=== PATIENT | female | born 1955 | race Caucasian/White ===

== ENCOUNTER 2016-07-13 10:34 | Emergency (ER) | payer SELFPAY ==
--- NOTE | 2016-07-13 10:51 | EDM.PDOC ---
ED HPI GENERAL MEDICAL PROBLEM - General Stated Complaint: congestion Time Seen by Provider: 07/13/16 10:40 History Limitations: Reports: No Limitations - History of Present Illness INITIAL COMMENTS - FREE TEXT/NARRATIVE: This is a 61yo F with cough and congestion for the past 2 weeks. Patient states it started with a severe sore throat and progressed to her sinuses and chest with coughing up a lot of sputum. Denies fever or chills, no sob, but persistent cough. Duration: Week(s): Location: Reports: Chest Quality: Reports: Ache Severity: Moderate Improves with: Reports: None Worsens with: Reports: None Associated Symptoms: Reports: Cough - Related Data Allergies Allergy/AdvReac Type Severity Reaction Status Date / Time clindamycin Allergy Unknown Hives Verified 11/02/15 13:43 Home Meds: Home Meds Lisinopril [Prinivil] 10 mg PO DAILY 09/02/13 [History] Simvastatin 40 mg PO DAILY 09/02/13 [History] RABEprazole Sodium [Rabeprazole Sodium] 1 tab PO DAILY 06/14/14 [History] SUMAtriptan Succinate [Sumatriptan Succinate] 50 mg PO ASDIRECTED PRN 06/14/14 [ History] Ibuprofen [Motrin] 800 mg PO TID PRN 11/02/15 [History] Venlafaxine HCl [Venlafaxine ER] 150 mg PO DAILY 11/02/15 [History] Past Medical History Cardiovascular History: Reports: High Cholesterol, Hypertension Gastrointestinal History: Reports: Other (See Below) Other Gastrointestinal History: 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 with bowel resection 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: Psychiatric History: Reports: Depression - Past Surgical History GI Surgical History: Reports: Appendectomy, Other (See Below) Female Surgical History: Reports: Section, Hysterectomy Neurological Surgical History: Reports: Lumbar Spine, Spinal Fusion Musculoskeletal Surgical History: Reports: Knee Replacement, Shoulder Surgery, Other (See Below) Social & Family History - Tobacco Use Smoking Status *Q: Current Every Day Smoker Years of Tobacco use: 30 Used Tobacco, but Quit: No Month Tobacco Last Used: August2012 Second Hand Smoke Exposure: No - Alcohol Use Days Per Week of Alcohol Use: 4 Number of Drinks Per Day: 5 Total Drinks Per Week: 20 - Recreational Drug Use Recreational Drug Use: No Drug Use in Last 12 Months: No ED ROS ENT - Review of Systems Review Of Systems: See Below Constitutional: Reports: No Symptoms HEENT: Reports: Throat Pain Respiratory: Reports: Cough, Sputum Cardiovascular: Reports: No Symptoms Endocrine: Reports: No Symptoms GI/Abdominal: Reports: No Symptoms : Reports: No Symptoms Psychiatric: Reports: No Symptoms ED EXAM, ENT - Physical Exam Exam: See Below Exam Limited By: No Limitations General Appearance: Alert, WD/WN, Mild Distress Eye Exam: Bilateral Eye: EOMI Ears: Normal External Exam Nose: Normal Inspection, Normal Mucousa, No Blood, Clear Rhinorrhea Mouth/Throat: Pharyngeal Erythema Head: Atraumatic, Normocephalic Neck: Normal Inspection, Supple, Non-Tender Respiratory/Chest: Decreased Breath Sounds, Rhonchi Cardiovascular: Normal Peripheral Pulses, Regular Rate, Rhythm GI/Abdominal: Normal Bowel Sounds, Soft Neurological: Alert, Oriented Psychiatric: Normal Affect, Normal Mood Skin: Warm, Dry, Intact Departure - Departure Time of Disposition: 10:52 Disposition: Home, Self-Care 01 Condition: good Clinical Impression: Chest congestion Pharyngitis Qualifiers: Pharyngitis/tonsillitis etiology: unspecified etiology Qualified Code(s): J02.9 - Acute pharyngitis, unspecified - Discharge Information - Assessment/Plan Plan: Patient placed on augmentin for 10 days. Discussed f/u if symptoms persist and immediate f/u if symptoms worsen. Discussed supportive and conservative care and f/u with PCP.
[2016-07-13] MEDS ORDERED: Amoxicillin/Clavulanate K 875-125 MG Tab ONE (10:55)
[2016-07-13 10:58] VITALS: BP 157/70
== END 2016-07-13 11:02 | disposition home or self-care (01) ==
LOC: LB.ED 10:34
DX: J02.9 Acute pharyngitis, unspecified (principal); R07.89 Other chest pain; E78.00 Pure hypercholesterolemia, unspecified; F32.9 Major depressive disorder, single episode, unspecified; F17.210 Nicotine dependence, cigarettes, uncomplicated; Z79.899 Other long term (current) drug therapy; Z88.8 Allergy status to other drugs, medicaments and biological substances
CPT/HCPCS: 99283; A9270

== ENCOUNTER 2016-09-10 20:09 | Emergency (ER) | payer OTHER ==
[2016-09-10] MEDS ORDERED: Ondansetron 4 MG Tab.DIS ONE (20:15)
[2016-09-10 20:44] VITALS: BP 147/88
[2016-09-10] MEDS ORDERED: Ketorolac 60 MG/2 ML SDV IM ONE (20:45)
--- NOTE | 2016-09-11 07:20 | EDM.PDOC ---
ED HPI GENERAL MEDICAL PROBLEM - General Chief Complaint: General Stated Complaint: HEADACHE Time Seen by Provider: 09/10/16 20:30 Source of Information: Reports: Patient History Limitations: Reports: No Limitations - History of Present Illness INITIAL COMMENTS - FREE TEXT/NARRATIVE: This is a 61yo F here for right headache. Patient states the headache is 8-9/10 and similar to the past headaches in the past week. Patient had hit her head when she fell about a week ago during work. She states she has had a history of migraines and headaches on and off all the time. This was more of the right head where she states she hit when she fell down last week. She does have a large bruise of the right hip from falling but no bruising or scrape of the right forehead. Patient denies any weakness, no numbness, no other neurological concerns. Onset: Gradual Duration: Week(s):, Intermittent Location: Reports: Head Quality: Reports: Ache Severity: Mild Improves with: Reports: Rest Worsens with: Reports: None Associated Symptoms: Reports: No Other Symptoms Headache Pain Score (Numeric/FACES): 8 - Related Data Allergies Allergy/AdvReac Type Severity Reaction Status Date / Time clindamycin Allergy Unknown Hives Verified 09/10/16 20:28 Home Meds: Home Meds Lisinopril [Prinivil] 10 mg PO DAILY 09/02/13 [History] Simvastatin 40 mg PO DAILY 09/02/13 [History] RABEprazole Sodium [Rabeprazole Sodium] 2 tab PO DAILY 06/14/14 [History] SUMAtriptan Succinate [Sumatriptan Succinate] 50 mg PO ASDIRECTED PRN 06/14/14 [ History] Ibuprofen [Motrin] 800 mg PO TID PRN 11/02/15 [History] Venlafaxine HCl [Venlafaxine ER] 150 mg PO DAILY 11/02/15 [History] Cyanocobalamin (Vitamin B-12) [Cyanocobalamin Injection] 1,000 mcg IJ ASDIRECTED 09/11/16 [History] Venlafaxine [Effexor XR] 37.5 mg PO DAILY 09/11/16 [History] buPROPion [Wellbutrin XL] 300 mg PO BEDTIME 09/11/16 [History] Past Medical History HEENT History: Reports: Impaired Vision Cardiovascular History: Reports: High Cholesterol, Hypertension Gastrointestinal History: Reports: Other (See Below) Other Gastrointestinal History: 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 with bowel resection 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: Psychiatric History: Reports: Depression - Past Surgical History HEENT Surgical History: Reports: Tonsillectomy GI Surgical History: Reports: Appendectomy, Other (See Below) Female Surgical History: Reports: Section, Hysterectomy Neurological Surgical History: Reports: Lumbar Spine, Spinal Fusion Musculoskeletal Surgical History: Reports: Knee Replacement, Shoulder Surgery Social & Family History - Family History Family Medical History: Noncontributory - Tobacco Use Smoking Status *Q: Current Every Day Smoker Years of Tobacco use: 40 Packs/Tins Daily: 1 Used Tobacco, but Quit: No Month Tobacco Last Used: August2012 Second Hand Smoke Exposure: No - Caffeine Use Caffeine Use: Reports: Coffee, Energy Drinks, Soda - Alcohol Use Days Per Week of Alcohol Use: 4 Number of Drinks Per Day: 5 Total Drinks Per Week: 20 - Recreational Drug Use Recreational Drug Use: No Drug Use in Last 12 Months: No ED ROS GENERAL - Review of Systems Review Of Systems: ROS reveals no pertinent complaints other than HPI. - Physical Exam Exam: See Below Exam Limited By: No Limitations General Appearance: Alert, WD/WN, No Apparent Distress Eye Exam: Bilateral Eye: EOMI, PERRL Ears: Normal External Exam Nose: Normal Inspection Throat/Mouth: Normal Inspection Head Exam: Atraumatic, Normocephalic Neck: Normal Inspection Respiratory/Chest: No Respiratory Distress, Lungs Clear Cardiovascular: Normal Peripheral Pulses, Regular Rate, Rhythm Extremities: Normal Inspection, Normal Range of Motion Psychiatric: Normal Affect, Normal Mood Skin Exam: Warm, Dry, Intact Course - Vital Signs Last Recorded V/S: Last Vital Signs Temp 35.9 C 09/10/16 20:42 Pulse 87 09/10/16 20:42 Resp 16 09/10/16 20:42 BP 147/88 H 09/10/16 20:42 Pulse Ox 98 09/10/16 20:42 - Orders/Labs/Meds Meds: Medications Discontinued Medications Generic Name Dose Route Start Last Admin Trade Name Freq PRN Reason Stop Dose Admin Ketorolac Tromethamine 60 mg 09/10/16 20:45 09/10/16 20:50 Toradol IM 09/10/16 20:46 60 mg ONETIME ONE Administration Departure - Departure Time of Disposition: 20:55 Disposition: Home, Self-Care 01 Condition: Good Clinical Impression: Headache Qualifiers: Headache type: unspecified Headache chronicity pattern: episodic headache Intractability: not intractable Qualified Code(s): R51 - Headache - Discharge Information Instructions: Concussion, Adult, [id number], Ondansetron oral dissolving tablet Referrals: PCP,None [Primary Care Provider] - Forms: ED Department Discharge Additional Instructions: Should headaches increase in severity, return to be seen. Continue to monitor for dizziness, blurred vision, lightheadedness, weakness. Should any of these symptoms occur, return to be seen for further evaluation. Follow up in clinic as needed. Call with any questions. - Problem List Review Problem List Initiated/Reviewed/Updated: Yes - Assessment/Plan Plan: Follow up if symptoms persist worsen or change. Patient understands the need for f/u. Discussed possible concussion and f/u.
== END 2016-09-10 20:53 | disposition home or self-care (01) ==
LOC: LB.ED 20:09
DX: R51 Headache (principal); H54.7 Unspecified visual loss; I10 Essential (primary) hypertension; E78.00 Pure hypercholesterolemia, unspecified; F32.9 Major depressive disorder, single episode, unspecified; Z98.890 Other specified postprocedural states; F17.210 Nicotine dependence, cigarettes, uncomplicated; Z88.1 Allergy status to other antibiotic agents; Z79.899 Other long term (current) drug therapy; Z96.659 Presence of unspecified artificial knee joint
CPT/HCPCS: 96372; 99283; A9270; J1885

== ENCOUNTER 2017-02-04 10:55 | Emergency (ER) | payer SELFPAY ==
[2017-02-04] MEDS ORDERED: Acetaminophen/HYDROcodone 325-5 MG Tab ONE ×2 (15:15)
--- NOTE | 2017-02-05 10:33 | CT ---
DATE OF SERVICE: 02/04/17 CLINICAL DATA: RT FLANK PAIN UNENHANCED ABDOMEN AND PELVIC CT: Multislice acquisition through the abdomen and pelvis without IV or oral contrast was performed. No priors. There are minimal atelectatic changes in the dependent portion of both lower lungs. The lung bases are otherwise clear. The unenhanced liver appears normal. No focal hepatic lesions. The gallbladder appears normal. The spleen appears normal. The pancreas appears normal. The right and left adrenals appear normal. There is an 8 mm distal ureteral calculus on the left located in the distal left ureter at the ureterovesical junction. There is hydronephrosis and hydroureter proximal to it consistent with obstruction. The kidneys and collecting systems otherwise appear normal bilaterally. No nephrocalcinosis or nephrolithiasis. No hydronephrosis or hydroureter on the right. The bladder is partially fluid-filled and appears normal. The patient is status post hysterectomy. No evidence of appendicitis. There is gastric wall thickening within the fundus and body of the stomach. This is most likely related to nondistension. Gastritis should at least be considered. There are surgical changes involving the distal sigmoid colon. There is mild mural thickening involving the rectum. Direct visualization is recommended. There is minimal diverticulosis of the sigmoid colon. No evidence of diverticulitis. No free air. No free fluid. No dilated loops of bowel. No adenopathy. No aortic aneurysm. IMPRESSION: 1) 8 mm distal ureteral calculus on left at ureterovesical junction with obstruction. 2) Gastric wall thickening most likely related to nondistension. Gastritis should be considered. 3) Surgical change involving distal sigmoid colon. There is mural thickening involving the rectum. Direct visualization should be considered. 4) Other findings as discussed above. [id number] [facility]
--- NOTE | 2017-02-06 10:48 | EDM.PDOC ---
ED HPI GENERAL MEDICAL PROBLEM - General Chief Complaint: Genitourinary Problem Stated Complaint: ABDOMINAL PAIN Time Seen by Provider: 02/05/17 15:57 Source of Information: Reports: Patient, RN, Other (Time in was 1100, [employer] system down and unable to document in system, refer to paper record for this visit.) History Limitations: Reports: No Limitations - History of Present Illness INITIAL COMMENTS - FREE TEXT/NARRATIVE: Please scan in provider notes from paper record as [employer] system down this day. Left Flank Pain Score (Numeric/FACES): 4 - Related Data Allergies Allergy/AdvReac Type Severity Reaction Status Date / Time clindamycin Allergy Unknown Hives Verified 09/10/16 20:28 Home Meds: Home Meds Lisinopril [Prinivil] 10 mg PO DAILY 09/02/13 [History] Simvastatin 40 mg PO DAILY 09/02/13 [History] RABEprazole Sodium [Rabeprazole Sodium] 2 tab PO DAILY 06/14/14 [History] SUMAtriptan Succinate [Sumatriptan Succinate] 50 mg PO ASDIRECTED PRN 06/14/14 [ History] Ibuprofen [Motrin] 800 mg PO TID PRN 11/02/15 [History] Venlafaxine HCl [Venlafaxine ER] 150 mg PO DAILY 11/02/15 [History] Cyanocobalamin (Vitamin B-12) [Cyanocobalamin Injection] 1,000 mcg IJ ASDIRECTED 09/11/16 [History] Venlafaxine [Effexor XR] 37.5 mg PO DAILY 09/11/16 [History] buPROPion [Wellbutrin XL] 300 mg PO BEDTIME 09/11/16 [History] Past Medical History HEENT History: Reports: Impaired Vision Cardiovascular History: Reports: High Cholesterol, Hypertension Gastrointestinal History: Reports: Other (See Below) Other Gastrointestinal History: 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 with bowel resection 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: Psychiatric History: Reports: Depression - Past Surgical History HEENT Surgical History: Reports: Tonsillectomy GI Surgical History: Reports: Appendectomy, Other (See Below) Female Surgical History: Reports: Section, Hysterectomy Neurological Surgical History: Reports: Lumbar Spine, Spinal Fusion Musculoskeletal Surgical History: Reports: Knee Replacement, Shoulder Surgery Social & Family History - Family History Family Medical History: Noncontributory - Tobacco Use Smoking Status *Q: Current Every Day Smoker Years of Tobacco use: 40 Packs/Tins Daily: 1 Used Tobacco, but Quit: No Month Tobacco Last Used: August2012 Second Hand Smoke Exposure: No - Caffeine Use Caffeine Use: Reports: Coffee, Energy Drinks, Soda - Alcohol Use Days Per Week of Alcohol Use: 4 Number of Drinks Per Day: 5 Total Drinks Per Week: 20 - Recreational Drug Use Recreational Drug Use: No Drug Use in Last 12 Months: No ED ROS GENERAL - Review of Systems Review Of Systems: See Below (Refer to paper record of notes.) : Reports: Flank Pain, Hematuria ED EXAM, RENAL/ - Physical Exam Exam: See Below (Refer to paper record for exam) Exam Limited By: No Limitations General Appearance: Alert, WD/WN, Mild Distress, Moderate Distress Ears: Hearing Grossly Normal Nose: Normal Inspection Throat/Mouth: Normal Inspection, Normal Lips, Normal Teeth Head: Atraumatic Neck: Supple, Non-Tender Respiratory/Chest: No Respiratory Distress, Lungs Clear GI/Abdominal: Normal Bowel Sounds, Soft (Female) Exam: Other (Flank pain, lower right back pain and into right pelvis ) Back Exam: Normal Inspection Extremities: Normal Inspection Neurological: Alert, Oriented Psychiatric: Normal Affect, Normal Mood Skin Exam: Warm, Dry, Normal Color Course - Vital Signs Last Recorded V/S: Last Vital Signs Temp 98 F 02/04/17 17:00 Pulse Resp 16 02/04/17 17:00 BP Pulse Ox - Orders/Labs/Meds Labs: Laboratory Tests 02/04/17 02/04/17 02/04/17 Range/Units 11:25 11:25 11:25 WBC 8.4 (4.0-11.0) K/uL RBC 4.38 (3.80-5.80) M/uL Hgb 12.6 (11.5-16.5) g/dL Hct 37.7 (37.0-47.0) % MCV 86 (76-96) fL MCH 28.8 (27.0-32.0) pg MCHC 33.4 (31.0-35.0) g/dL RDW 13.6 (11.0-16.0) % Plt Count 215 (150-500) K/uL MPV 9.6 (6.0-10.0) fL Neut % (Auto) 71.5 H (45.0-70.0) % Lymph % (Auto) 20.8 (20.0-40.0) % Lewis % (Auto) 6.2 (3.0-10.0) % Eos % (Auto) 1.4 (1.0-5.0) % Baso % (Auto) 0.1 (0.0-0.5) % Neut # (Auto) 6.01 (2.00-7.50) K/uL Lymph # (Auto) 1.75 (1.50-4.00) K/uL Lewis # (Auto) 0.52 (0.20-0.80) K/uL Eos # (Auto) 0.12 (0.04-0.40) K/uL Baso # (Auto) 0.01 L (0.02-0.10) K/uL Sodium 143 (136-145) mmol/L Potassium 3.9 (3.5-5.1) mmol/L Chloride 106 (98-107) mmol/L Carbon Dioxide 28.4 (21.0-32.0) mmol/L Anion Gap 12.5 (5.0-15.0) mmol/L BUN 18 D (8-26) mg/dL Creatinine 0.68 D (0.55-1.02) mg/dL Est Cr Clr Drug Dosing TNP Estimated GFR (MDRD) > 60 (>60) MLS/MIN BUN/Creatinine Ratio 26.5 H (6-25) Glucose 117 H (74-100) mg/dL Calcium 9.0 (8.5-10.1) mg/dL Urine Color Yellow Urine Appearance Clear (CLEAR) Urine pH 5.5 (5.0-8.0) Ur Specific [place] 1.025 (1.003-1.030) Urine Protein Negative (NEGATIVE) mg/dL Urine Glucose (UA) Negative (NEGATIVE) mg/dL Urine Ketones Negative (NEGATIVE) mg/dL Urine Occult Blood Negative (NEGATIVE) Urine Nitrite Negative (NEGATIVE) Urine Bilirubin Negative (NEGATIVE) Urine Urobilinogen 0.2 (0.2-1.0) E.U./dL Ur Leukocyte Esterase Negative (NEGATIVE) Urine RBC 0-5 H /HPF Urine WBC 0-5 H /HPF Departure - Departure Time of Disposition: 17:00 Disposition: Home, Self-Care 01 Condition: Good Clinical Impression: Kidney stone - Discharge Information Referrals: PCP,None [Primary Care Provider] - Forms: ED Department Discharge Care Plan Goals: No fluids after midnight. Can have sip of water with pain medication. No food tonight. Report to [facility] in am. Report to X-Ray at the clinic. Strain urine Can take [place] 1 to two every 4 to 6 hours for pain. No driving while taking pain medication - Problem List & Annotations (1) Kidney stone SNOMED Code(s): 45945055 Code(s): N20.0 - CALCULUS OF KIDNEY Status: Acute Current Visit: Yes - Problem List Review Problem List Initiated/Reviewed/Updated: Yes - Assessment/Plan Plan: Discharge to home. Consult with nephrology at [facility] and with Dr Zarate nurse. CT report pushed to [facility]. Rx for hydrocodone/APAP. May have food/fluids tonight and nothing after midnight. Present to [facility] tomorrow for KUB and then to Dr Zarate and treatment will be decided at that point. Urologist states to discharge to home with pain medication and present to Octavio in am. Discharge to family care for the night. Pt states understanding of treatment.
== END 2017-02-04 17:00 ==
LOC: LB.ED 10:55
DX: N13.2 Hydronephrosis with renal and ureteral calculous obstruction (principal); I10 Essential (primary) hypertension; E78.00 Pure hypercholesterolemia, unspecified; F17.210 Nicotine dependence, cigarettes, uncomplicated; F32.9 Major depressive disorder, single episode, unspecified; Z79.899 Other long term (current) drug therapy; Z88.1 Allergy status to other antibiotic agents
CPT/HCPCS: 36415; 74176; 80048; 81001; 85025; 99284; A9270

== ENCOUNTER 2017-08-27 19:43 | Emergency (ER) | payer SELFPAY ==
[2017-08-27] MEDS: Prochlorperazine 10 MG in Sodium Chloride 0.9% 50 ML IV ONE (20:02)
[2017-08-27] MEDS: Ketorolac 30 MG/ML SDV ONE (20:25)
[2017-08-27 21:59] VITALS: BP 142/79
--- NOTE | 2017-08-28 23:57 | ER ---
HPI: The patient is a 62-year-old female who comes in today with a migraine headache. She notes this is severe, it started yesterday. It is no different than her usual migraine headaches other than it is not a good one. She does have nausea, no vomiting, but she does have photophobia. The patient has a past medical history of diverticulitis, perforation of the intestine, hyperkalemia, epigastric pain, migraines, anxiety, and kidney stones. CURRENT MEDICATIONS: Bupropion, venlafaxine, simvastatin; sumatriptan, but she notes she is out, she takes 50 mg tablets as directed; rabeprazole sodium, lisinopril, ibuprofen, and cyanocobalamin. She did take some ibuprofen for this, but it did not help. She is out of the sumatriptan. ALLERGIES: HER ALLERGIES ARE CLINDAMYCIN. PHYSICAL EXAMINATION: GENERAL: She is alert, oriented, no apparent distress. HEENT: Unremarkable. Pupils are equal and reactive to light. Fundi appear normal. TMs normal. Nares are clear. Throat is normal. NECK: Supple. No nodes. LUNGS: Clear. HEART: Regular sinus rhythm. NEUROLOGIC: Nonfocal. ASSESSMENT: Migraine cephalgia. PLAN: The patient was given Compazine 10 mg IV over two minutes. This improved her nausea and brought her headache down to a lower level. She still had some residual headache, so she was given 30 mg of Toradol IV and this basically resolved her headache altogether. The patient was also given a prescription for some sumatriptan 50 mg, may repeat again x1 in an hour and 6 tablets with a couple of refills. The patient return to clinic if her headache fails to resolve afterwards or for worsening symptoms. ANOOP/PADDY /[id number]
== END 2017-08-27 20:50 | disposition home or self-care (01) ==
LOC: LB.ED 19:43
DX: G43.909 Migraine, unspecified, not intractable, without status migrainosus (principal); Z88.1 Allergy status to other antibiotic agents
CPT/HCPCS: 96365; 99283-25; J0780; J1885; J7050

== ENCOUNTER 2019-05-08 22:00 | Emergency (ER) | payer SELFPAY ==
[2019-05-08] MEDS: Bupivacaine 0.5% 10 ML SDV INJECT ONE (22:50)
[2019-05-08] MEDS: Triamcinolone Acetonide 40 MG/ML 1 ML MDV INJECT ONE (22:50)
[2019-05-08] MEDS ORDERED: Methocarbamol 500 MG Tab ONE (23:00)
[2019-05-08] MEDS: Promethazine 25 MG/ML SDV IM STA (23:00)
[2019-05-08] MEDS: Morphine 10 MG/ML Syringe IM STA (23:00)
--- NOTE | 2019-05-08 23:05 | EDM.PDOC ---
ED HPI GENERAL MEDICAL PROBLEM - General Chief Complaint: Back Pain or Injury Stated Complaint: back pain Time Seen by Provider: 05/08/19 22:30 - History of Present Illness INITIAL COMMENTS - FREE TEXT/NARRATIVE: Venessa presents to the ER tonight with a complex history of longstanding back pain. She is status post fusion with a cage from L4-5. This worked for her for many years. 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 This involved a lot of bending, lifting, and twisting. She denies any injury per se, but started to get a flareup of her lumbar discomfort a couple of weeks back. This prompted an evaluation where she was given a prescription for Flexeril along with Lidoderm patches. These helped for a few days. She has taken a lot of ibuprofen in the past. She has not really tried anything recently. She is mainly here to get some relief because she is rating her pain so severe that she does not think she will get adequate sleep tonight. She is currently laid off and that is very stressful. She has had no issues with decreased strength, sensory deficits, or urinary retention. She denies any recent injury, although she notes that she was manipulated with a high velocity move maneuver by her chiropractor, involving him essentially squeezing together her pelvis at the level of the trochanter of her hip. She does not have any tenderness there. She localizes it to her mid back, without radiation. She has had pain medicine in the past, and tolerates this well. She was hoping to get something to help her get through the night. She sometimes gets nauseated from this. - Related Data Allergies Allergy/AdvReac Type Severity Reaction Status Date / Time clindamycin Allergy Unknown Hives Verified 09/10/16 20:28 Home Meds: Home Meds Simvastatin 40 mg PO DAILY 09/02/13 [History] lisinopriL [Prinivil] 10 mg PO DAILY 09/02/13 [History] RABEprazole Sodium [Rabeprazole Sodium] 2 tab PO DAILY 06/14/14 [History] SUMAtriptan succinate [Sumatriptan Succinate] 50 mg PO ASDIRECTED PRN 06/14/14 [ History] Ibuprofen [Motrin] 800 mg PO TID PRN 11/02/15 [History] Venlafaxine HCl [Venlafaxine ER] 150 mg PO DAILY 11/02/15 [History] Cyanocobalamin (Vitamin B-12) [Cyanocobalamin Injection] 1,000 mcg IJ ASDIRECTED 09/11/16 [History] Venlafaxine [Effexor XR] 37.5 mg PO DAILY 09/11/16 [History] buPROPion [Wellbutrin XL] 300 mg PO BEDTIME 09/11/16 [History] Past Medical History HEENT History: Reports: Impaired Vision Cardiovascular History: Reports: High Cholesterol, Hypertension Gastrointestinal History: Reports: Other (See Below) Other Gastrointestinal History: 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 with bowel resection [employer] History: Reports: Psychiatric History: Reports: Depression - Past Surgical History HEENT Surgical History: Reports: Tonsillectomy GI Surgical History: Reports: Appendectomy, Other (See Below) Female Surgical History: Reports: Section, Hysterectomy Neurological Surgical History: Reports: Lumbar Spine, Spinal Fusion Musculoskeletal Surgical History: Reports: Knee Replacement, Shoulder Surgery Social & Family History - Family History Family Medical History: Noncontributory - Caffeine Use Caffeine Use: Reports: Coffee, Energy Drinks, Soda ED ROS GENERAL - Review of Systems Review Of Systems: Comprehensive ROS is negative, except as noted in HPI. ED EXAM, GENERAL - Physical Exam Exam: See Below General Appearance: Alert, WD/WN, No Apparent Distress Eye Exam: Bilateral Eye: EOMI Ears: Normal External Exam Nose: Normal Inspection Throat/Mouth: Normal Inspection, Normal Lips Head: Atraumatic, Normocephalic Neck: Normal Inspection, Supple, Non-Tender, Full Range of Motion Respiratory/Chest: No Respiratory Distress, Lungs Clear, Normal Breath Sounds Cardiovascular: Regular Rate, Rhythm, No Murmur GI/Abdominal: Normal Bowel Sounds, Soft, Non-Tender Back Exam: Normal Inspection, Full Range of Motion, Muscle Spasm, Paraspinal Tenderness, Other (Careful inspection of her back reveals a loss of lumbar lordosis. She has no tenderness to palpation overlying her spine. She is noted to have exquisite tenderness of her left SI joint that seems to reproduce her symptoms. After a lot of discussion, carefully explaining risk versus benefit, I did offer her an injection in the sacroiliac joint. Under usual sterile precautions, gave Kenalog 40 mg along with bupivacaine 9 mL's into her left sacroiliac joint with moderate difficulty, although she did tolerate this well. There was no significant bleeding, and repeat palpation resolved her focal tenderness, and significantly improved her pain.). No: Vertebral Tenderness Extremities: Normal Inspection, Normal Range of Motion, Normal Capillary Refill Neurological: Alert, Oriented, Normal Cognition, No Motor/Sensory Deficits Psychiatric: Normal Affect, Normal Mood Skin Exam: Warm, Dry, Intact Course - Vital Signs Text/Narrative:: Explained that at this juncture it certainly appears that she has a sacroiliitis related to her manipulation or potentially representing the injury that started up a couple of weeks ago. She certainly does not appear to be having any radicular symptoms. We explained that x-ray would probably not be helpful. She promises to follow-up with any persistent or worsening issues, and was given a take-home pack for Robaxin. She will continue to use her Lidoderm as needed. Return instructions were reviewed with my RN. She did receive an injection of morphine and Phenergan to help ensure that she gets through the night with adequate rest. - Orders/Labs/Meds Meds: Medications Discontinued Medications Generic Name Dose Route Start Last Admin Trade Name Carisa PRN Reason Stop Dose Admin Promethazine HCl Confirm 05/08/19 22:51 Phenergan Administered 05/08/19 22:52 Dose 25 mg .ROUTE .STK-MED ONE Departure - Departure Time of Disposition: 23:00 Disposition: Home, Self-Care 01 Condition: Fair Clinical Impression: Sacroiliac joint pain - Discharge Information Referrals: PCP,None [Primary Care Provider] -
[2019-05-09 02:45] VITALS: BP 149/84; PULSE 114
[2019-05-09] MEDS: Promethazine 25 MG/ML SDV ONE (03:25)
== END 2019-05-08 23:20 | disposition home or self-care (01) ==
LOC: LB.ED 22:00
DX: M53.3 Sacrococcygeal disorders, not elsewhere classified (principal); I10 Essential (primary) hypertension; Z88.1 Allergy status to other antibiotic agents
CPT/HCPCS: 20552; 96372; 99283; 99283-25; A9270-GY; J2270; J2550; J3301; J3490

== ENCOUNTER 2019-05-22 13:17 | Emergency (ER) | payer SELFPAY ==
[2019-05-22] MEDS ORDERED: Albuterol 0.021% 0.63 MG/3 ML Neb Soln ONE ×2 (13:40→14:15)
[2019-05-22 14:02] VITALS: BP 145/83; PULSE 110
--- NOTE | 2019-05-22 14:16 | EDM.PDOC ---
ED HPI GENERAL MEDICAL PROBLEM - General Chief Complaint: General Stated Complaint: Difficulty Breathing Time Seen by Provider: 05/22/19 13:50 Source of Information: Reports: Patient History Limitations: Reports: No Limitations - History of Present Illness INITIAL COMMENTS - FREE TEXT/NARRATIVE: This patient presents to the ED for evaluation of cough. She states she has been ill the past week with the cough. The illness began with a sore throat and now she is having episodes of coughing that "comes and goes" and is sometimes so hard and prolonged that she feels a little dizzy. She has not had a fever with this illness. Her appetite is good and she has not had any vomiting or diarrhea. Her was recently hospitalized with pneumonia. Onset: Gradual Onset Date: 05/15/19 Duration: Waxing/Waning Location: Reports: Chest Quality: Reports: Other (sometimes feel tight) Severity: Mild Improves with: Reports: None Associated Symptoms: Reports: Cough, Shortness of Breath. 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 (see below) Other Treatments RIGHT OF WAY MAINTENANCE SUPERVISOR: Dayquil - Related Data Allergies Allergy/AdvReac Type Severity Reaction Status Date / Time clindamycin Allergy Unknown Hives Verified 09/10/16 20:28 Home Meds: Home Meds Simvastatin 40 mg PO DAILY 09/02/13 [History] lisinopriL [Prinivil] 10 mg PO DAILY 09/02/13 [History] RABEprazole Sodium [Rabeprazole Sodium] 2 tab PO DAILY 06/14/14 [History] SUMAtriptan succinate [Sumatriptan Succinate] 50 mg PO ASDIRECTED PRN 06/14/14 [ History] Ibuprofen [Motrin] 800 mg PO TID PRN 11/02/15 [History] Venlafaxine HCl [Venlafaxine ER] 150 mg PO DAILY 11/02/15 [History] Cyanocobalamin (Vitamin B-12) [Cyanocobalamin Injection] 1,000 mcg IJ ASDIRECTED 09/11/16 [History] Venlafaxine [Effexor XR] 37.5 mg PO DAILY 09/11/16 [History] buPROPion [Wellbutrin XL] 300 mg PO BEDTIME 09/11/16 [History] Past Medical History HEENT History: Reports: Impaired Vision Cardiovascular History: Reports: High Cholesterol, Hypertension Gastrointestinal History: Reports: Other (See Below) 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 Gastrointestinal History: 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 with bowel 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: Psychiatric History: Reports: Depression - Past Surgical History HEENT Surgical History: Reports: Tonsillectomy GI Surgical History: Reports: Appendectomy, Other (See Below) Female Surgical History: Reports: Section, Hysterectomy Neurological Surgical History: Reports: Lumbar Spine, Spinal Fusion Musculoskeletal Surgical History: Reports: Knee Replacement, Shoulder Surgery Social & Family History - Family History Family Medical History: Noncontributory - Caffeine Use Caffeine Use: Reports: Coffee, Energy Drinks, Soda ED ROS GENERAL - Review of Systems Review Of Systems: Comprehensive ROS is negative, except as noted in HPI. ED EXAM, GENERAL - Physical Exam Exam: See Below Exam Limited By: No Limitations General Appearance: Alert, WD/WN, No Apparent Distress Eye Exam: Bilateral Eye: PERRL Ears: Normal External Exam Nose: Normal Inspection Throat/Mouth: Normal Inspection Head: Atraumatic, Normocephalic Neck: Normal Inspection, Full Range of Motion Respiratory/Chest: No Respiratory Distress, Lungs Clear, Normal Breath Sounds, No Accessory Muscle Use, Chest Non-Tender Extremities: Normal Inspection Neurological: Alert, Oriented Psychiatric: Normal Affect Skin Exam: Warm, Dry, Intact Course - Vital Signs Last Recorded V/S: Last Vital Signs Temp 36.6 C 05/22/19 14:00 Pulse 110 H 05/22/19 14:00 Resp 18 05/22/19 14:00 BP 145/83 H 05/22/19 14:00 Pulse Ox 98 05/22/19 14:00 - Orders/Labs/Meds Orders: Active Orders 24 hr Category Date Time Status Chest 2V [CR] Stat Exams 05/22/19 13:41 Taken Meds: Medications Discontinued Medications Generic Name Dose Route Start Last Admin Trade Name Freq PRN Reason Stop Dose Admin Albuterol Confirm 05/22/19 14:15 Proventil Neb Soln Administered 05/22/19 14:16 Dose 3.78 mg .ROUTE .STK-MED ONE - Re-Assessments/Exams Free Text/Narrative Re-Assessment/Exam: 05/22/19 14:16 This patient presents with complaint of cough. The patient appears well and nontoxic. There is no evidence of any respiratory distress. The patient has normal oxygen saturations with normal work of breathing. A chest x-ray was obtained and found to be negative for evidence of a pneumonia or other acute abnormalities. At this time, I find no indication for antibiotics. I will start the patient on albuterol nebs (the patient states they have a nebulizer unit at home) and discussed symptomatic treatment including increased rest and fluids. I discussed the need to seek care immediately for any increased difficulty breathing, severe chest pain, high fever or any other new concerns. Primary clinic follow up in 1 week recommended. The patient left with complete understanding and agreement with this plan and at the time of discharge had no further complaints. Departure - Departure Time of Disposition: 14:15 Disposition: Home, Self-Care 01 Condition: Good Clinical Impression: Bronchitis - Discharge Information Referrals: PCP,None [Primary Care Provider] - Forms: ED Department Discharge Additional Instructions: Albuterol 2.5 mg in 3 ml as directed Sepsis Event Note - Focused Exam Vital Signs: Vital Signs Temp Pulse Resp BP Pulse Ox 05/22/19 14:00 36.6 C 110 H 18 145/83 H 98 Date Exam was Performed: 05/22/19 Time Exam was Performed: 14:10 - My Orders Last 24 Hours: My Active Orders 05/22/19 13:41 Chest 2V [CR] Stat - Assessment/Plan Last 24 Hours: My Active Orders 05/22/19 13:41 Chest 2V [CR] Stat
--- NOTE | 2019-05-23 12:19 | CR ---
DATE OF SERVICE: 05/22/2019 CLINICAL DATA: Cough PA AND LATERAL CHEST: Comparison is made to a prior exam dated 03/20/14. The heart size is normal. The lungs are clear. No pneumothorax. No pleural effusions. There is degenerative disc disease throughout the thoracic spine. There is a partial compression fracture of the mid thoracic vertebrae, age indeterminate. No evidence of acute intrathoracic disease. [id number] [facility]
== END 2019-05-22 14:12 | disposition home or self-care (01) ==
LOC: LB.ED 13:17
DX: J40 Bronchitis, not specified as acute or chronic (principal); I10 Essential (primary) hypertension; F32.9 Major depressive disorder, single episode, unspecified; E78.00 Pure hypercholesterolemia, unspecified; Z88.1 Allergy status to other antibiotic agents; Z79.899 Other long term (current) drug therapy
CPT/HCPCS: 71046; 99283; 99285-25

== ENCOUNTER 2019-09-19 20:04 | Emergency (ER) | payer MEDICAID, OTHER ==
[2019-09-19] MEDS: Diphtheria/Tetanus Toxoids,Adult (Td) 0.5 ML SDV IM ONE ×2 (20:20→21:31)
--- NOTE | 2019-09-19 20:28 | EDM.PDOC ---
ED HPI GENERAL MEDICAL PROBLEM - General Chief Complaint: Laceration Stated Complaint: LACERATION Time Seen by Provider: 09/19/19 20:21 Source of Information: Reports: Patient, RN, RN Notes Reviewed History Limitations: Reports: No Limitations - History of Present Illness INITIAL COMMENTS - FREE TEXT/NARRATIVE: Patient was at work. Sliced her right index finger with a serrated knife. She was able to wrap the injury and secure it with tape. She feels it is deep. She was given a ride to the hospital by one of her co-workers. Her tetanus is 9 years old. Onset: Today, Sudden Onset Date: 09/19/19 Onset Time: 20:00 Duration: Minutes: Location: Reports: Upper Extremity, Right Quality: Reports: Throbbing Severity: Mild Improves with: Reports: Immobilization Worsens with: Reports: Movement Associated Symptoms: Reports: No Other Symptoms Right Finger-Index Pain Score (Numeric/FACES): 2 - Related Data Allergies Allergy/AdvReac Type Severity Reaction Status Date / Time clindamycin Allergy Unknown Hives Verified 09/10/16 20:28 Home Meds: Home Meds Simvastatin 40 mg PO DAILY 09/02/13 [History] lisinopriL [Prinivil] 10 mg PO DAILY 09/02/13 [History] RABEprazole Sodium [Rabeprazole Sodium] 2 tab PO DAILY 06/14/14 [History] SUMAtriptan succinate [Sumatriptan Succinate] 50 mg PO ASDIRECTED PRN 06/14/14 [History] Ibuprofen [Motrin] 800 mg PO TID PRN 11/02/15 [History] Venlafaxine HCl [Venlafaxine ER] 150 mg PO DAILY 11/02/15 [History] Cyanocobalamin (Vitamin B-12) [Cyanocobalamin Injection] 1,000 mcg IJ ASDIRECTED 09/11/16 [History] Venlafaxine [Effexor XR] 37.5 mg PO DAILY 09/11/16 [History] buPROPion [Wellbutrin XL] 300 mg PO BEDTIME 09/11/16 [History] Past Medical History HEENT History: Reports: Impaired Vision Cardiovascular History: Reports: High Cholesterol, Hypertension Gastrointestinal History: Reports: Other (See Below) Other Gastrointestinal History: 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 with bowel resection [employer]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: Psychiatric History: Reports: Depression - Past Surgical History HEENT Surgical History: Reports: Tonsillectomy GI Surgical History: Reports: Appendectomy, Other (See Below) Female Surgical History: Reports: Section, Hysterectomy Neurological Surgical History: Reports: Lumbar Spine, Spinal Fusion Musculoskeletal Surgical History: Reports: Knee Replacement, Shoulder Surgery Social & Family History - Family History Family Medical History: Noncontributory - Tobacco Use Smoking Status *Q: Current Every Day Smoker Years of Tobacco use: 30 Packs/Tins Daily: 0.5 Used Tobacco, but Quit: No - Caffeine Use Caffeine Use: Reports: Coffee - Recreational Drug Use Recreational Drug Use: No ED ROS GENERAL - Review of Systems Review Of Systems: See Below Constitutional: Reports: No Symptoms Respiratory: Reports: No Symptoms Cardiovascular: Reports: No Symptoms Skin: Reports: Wound (incision from serrated knife right index finger) Neurological: Reports: No Symptoms ED EXAM, SKIN/RASH Exam: See Below Exam Limited By: No Limitations General Appearance: Alert, WD/WN, No Apparent Distress Respiratory/Chest: No Respiratory Distress, Lungs Clear, Normal Breath Sounds, No Accessory Muscle Use, Chest Non-Tender Cardiovascular: Normal Peripheral Pulses, Regular Rate, Rhythm, No Murmur, No Rub Neurological: Alert, Oriented, CN II-XII Intact, Normal Cognition, Normal Gait, Normal Reflexes Skin: Warm, Dry, Wound/Incision (1.3 cm superficial lac right index finger) Location, Skin: Upper Extremity, Right ED SKIN PROCEDURES - Laceration/Wound Repair Right Digit - 2nd (Index) Appearance: Superficial, Clean Distal NVT: Neuro & Vascular Intact, No Tendon Injury Skin Prep: Saline Exploration/Debridement/Repair: Wound Explored, In a Bloodless Field, Explored to Base Closed with: Dermabond, Steri-Strips Lac/Wound length In cm: 1.3 Tetanus Status Addressed: Yes Complications: No Progress/Comments: Serrated edge of wound lays back in place without difficulty. It is cleaned and irrigated. No foreign objects found. The wound edges are secured with derma mratins and steri strips to pull and hold the wound together. Patient instructed in wound care, how to identify infection and provided a current Tdap. Course - Orders/Labs/Meds Orders: Active Orders 24 hr Category Date Time Status Vaccines to be Administered [RC] PER UNIT ROUTINE Care 09/19/19 20:22 Ordered Diphtheria/Tetanus Tox,Adult [Tenivac] Med 09/19/19 20:21 Once 0.5 ml IM .ONCE ONE Medication Orders Tetanus/Diphtheria Toxoids (Tenivac) 0.5 ml IM .ONCE ONE Stop: 09/19/19 20:22 Meds: Medications Generic Name Dose Route Start Last Admin Trade Name Carisa PRN Reason Stop Dose Admin Tetanus/Diphtheria Toxoids 0.5 ml 09/19/19 20:21 Tenivac IM 09/19/19 20:22 .ONCE ONE - Re-Assessments/Exams Free Text/Narrative Re-Assessment/Exam: 09/19/19 20:45 Patient has sensation at the tip of her finger with good CMS at the nail bed. Patient tolerated the cleaning and the dressing application without difficulty and after education is able to state how to keep it protected and what signs and symptoms to report if there is any infection noted. No antibiotics necessary. Departure - Departure Time of Disposition: 20:38 Disposition: Home, Self-Care 01 Condition: Good Clinical Impression: Laceration - Discharge Information *PRESCRIPTION DRUG MONITORING PROGRAM REVIEWED*: Not Applicable *COPY OF PRESCRIPTION DRUG MONITORING REPORT IN PATIENT LILIANA: Not Applicable Instructions: Laceration Care, Adult, [id number] Care Plan Goals: Return if any complications or signs of infection - My Orders Last 24 Hours: My Active Orders 09/19/19 20:21 Diphtheria/Tetanus Tox,Adult [Tenivac] 0.5 ml IM .ONCE ONE 09/19/19 20:22 Vaccines to be Administered [RC] PER UNIT ROUTINE - Assessment/Plan Last 24 Hours: My Active Orders 09/19/19 20:21 Diphtheria/Tetanus Tox,Adult [Tenivac] 0.5 ml IM .ONCE ONE 09/19/19 20:22 Vaccines to be Administered [RC] PER UNIT ROUTINE
[2019-09-19 20:52] VITALS: BP 158/75; PULSE 98
== END 2019-09-19 23:10 | disposition home or self-care (01) ==
LOC: LB.ED 20:04
DX: S61.210A Laceration without foreign body of right index finger without damage to nail, initial encounter (principal); I10 Essential (primary) hypertension; E78.00 Pure hypercholesterolemia, unspecified; F32.9 Major depressive disorder, single episode, unspecified; F17.210 Nicotine dependence, cigarettes, uncomplicated; Z90.49 Acquired absence of other specified parts of digestive tract; Z23 Encounter for immunization; Z98.890 Other specified postprocedural states; Z90.710 Acquired absence of both cervix and uterus; Z88.1 Allergy status to other antibiotic agents; Z79.899 Other long term (current) drug therapy; W26.0XXA Contact with knife, initial encounter
CPT/HCPCS: 12001; 90471; 90714; 99282

== ENCOUNTER 2019-10-25 16:55 | Emergency (ER) | payer MEDICAID ==
--- NOTE | 2019-10-25 17:31 | EDM.PDOC ---
ED HPI GENERAL MEDICAL PROBLEM - General Chief Complaint: Chest Pain Stated Complaint: chest and arm pain Time Seen by Provider: 10/25/19 17:10 Source of Information: Reports: Patient History Limitations: Reports: No Limitations - History of Present Illness INITIAL COMMENTS - FREE TEXT/NARRATIVE: Pt presents with two complaints which may be unrelated. She has had left arm pain for past 3 weeks and recently received an IM injection which has not helped much and second reason she has been having intermittent fleeting chest pain, mostly left side. Hurts to take a deep breath or to touch left chest wall. No shortness of breath or diaphoresis. No fever, no cough. States she feels as if pain sometimes radiates up from her left lower abdomen into her chest. No fever. She admits she is under a great deal of stress dealing with her 's health needs. She is concerned because her mother had had a heart attach at her age is want's assurance that what she is experiencing now is not her heart. - Related Data Allergies Allergy/AdvReac Type Severity Reaction Status Date / Time clindamycin Allergy Unknown Hives Verified 09/10/16 20:28 Home Meds: Home Meds lisinopriL [Prinivil] 10 mg PO DAILY 09/02/13 [History] RABEprazole Sodium [Rabeprazole Sodium] 2 tab PO DAILY 06/14/14 [History] SUMAtriptan succinate [Sumatriptan Succinate] 50 mg PO ASDIRECTED PRN 06/14/14 [History] Ibuprofen [Motrin] 800 mg PO TID PRN 11/02/15 [History] Venlafaxine HCl [Venlafaxine ER] 150 mg PO DAILY 11/02/15 [History] Cyanocobalamin (Vitamin B-12) [Cyanocobalamin Injection] 1,000 mcg IJ ASDIRECTED 09/11/16 [History] Venlafaxine [Effexor XR] 37.5 mg PO DAILY 09/11/16 [History] buPROPion [Wellbutrin XL] 300 mg PO BEDTIME 09/11/16 [History] Magnesium 250 mg PO DAILY 10/25/19 [History] Rosuvastatin [Crestor] 40 mg PO DAILY 10/25/19 [History] Past Medical History HEENT History: Reports: Impaired Vision Cardiovascular History: Reports: High Cholesterol, Hypertension Gastrointestinal History: Reports: Other (See Below) Other Gastrointestinal History: 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 with bowel resection 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: Psychiatric History: Reports: Depression - Past Surgical History HEENT Surgical History: Reports: Tonsillectomy GI Surgical History: Reports: Appendectomy, Other (See Below) Female Surgical History: Reports: Section, Hysterectomy Neurological Surgical History: Reports: Lumbar Spine, Spinal Fusion Musculoskeletal Surgical History: Reports: Knee Replacement, Shoulder Surgery Social & Family History - Family History Family Medical History: Noncontributory - Caffeine Use Caffeine Use: Reports: Coffee Review of Systems - Review of Systems Review Of Systems: See Below Constitutional: Reports: No Symptoms Ears: Reports: No Symptoms Nose: Reports: No Symptoms Mouth/Throat: Reports: No Symptoms Respiratory: Reports: No Symptoms, Pleuritic Chest Pain. Denies: Shortness of Breath, Wheezing Cardiovascular: Reports: Chest Pain. Denies: Irregular Heart Rate, Lightheadedness, Palpitations, Syncope GI/Abdominal: Reports: No Symptoms. Denies: Abdominal Pain Musculoskeletal: Reports: Neck Pain, Shoulder Pain, Arm Pain, Muscle Pain Skin: Reports: No Symptoms Neurological: Reports: No Symptoms, Confusion Psychiatric: Reports: No Symptoms ED EXAM, GENERAL - Physical Exam Exam: See Below Exam Limited By: No Limitations General Appearance: Alert, WD/WN, No Apparent Distress, Anxious Ears: Normal External Exam, Normal Canal Nose: Normal Inspection, Normal Mucosa Throat/Mouth: Normal Inspection, Normal Lips, Normal Teeth Head: Atraumatic, Normocephalic Neck: Normal Inspection, Supple, Non-Tender Respiratory/Chest: No Respiratory Distress, Lungs Clear, Normal Breath Sounds, No Accessory Muscle Use, Other (left anterior chest wall tenderness) GI/Abdominal: Normal Bowel Sounds Back Exam: Normal Inspection Extremities: Normal Inspection Neurological: Alert, Oriented, CN II-XII Intact, Normal Cognition, Normal Gait Psychiatric: Anxious Skin Exam: Warm, Dry Course - Vital Signs Last Recorded V/S: Last Vital Signs Temp 97.7 F 10/25/19 18:10 Pulse 108 H 10/25/19 18:10 Resp 16 10/25/19 18:10 BP 122/64 10/25/19 18:10 Pulse Ox 97 10/25/19 18:10 - Orders/Labs/Meds Orders: Active Orders 24 hr Category Date Time Status EKG Documentation Completion [RC] ASDIRECTED Care 10/25/19 17:37 Active Vital Signs [RC] PER UNIT ROUTINE Care 10/25/19 17:37 Active Chest 1V Frontal [CR] Stat Exams 10/25/19 17:34 Taken CALCIUM, IONIZED, SERUM Urgent Lab 10/25/19 17:45 Received Sodium Chloride 0.9% [Normal Saline] 1,000 ml Med 10/25/19 17:45 Active IV ASDIRECTED Medication Orders Sodium Chloride (Normal Saline) 1,000 mls @ 125 mls/hr IV ASDIRECTED ALICIA Last Admin: 10/25/19 17:57 Dose: 125 mls/hr Documented by: KARIN Labs: Laboratory Tests 10/25/19 10/25/19 Range/Units 17:45 17:45 WBC 9.8 D (4.0-11.0) K/uL RBC 4.52 (3.80-5.80) M/uL Hgb 13.2 (11.5-16.5) g/dL Hct 39.1 (37.0-47.0) % MCV 87 (76-96) fL MCH 29.2 (27.0-32.0) pg MCHC 33.8 (31.0-35.0) g/dL RDW 13.0 (11.0-16.0) % Plt Count 232 (150-500) K/uL MPV 9.3 (6.0-10.0) fL Neut % (Auto) 71.1 H (45.0-70.0) % Lymph % (Auto) 21.6 (20.0-40.0) % [place] % (Auto) 6.4 (3.0-10.0) % Eos % (Auto) 0.8 L (1.0-5.0) % Baso % (Auto) 0.1 (0.0-0.5) % Neut # (Auto) 6.96 (2.00-7.50) K/uL Lymph # (Auto) 2.12 (1.50-4.00) K/uL [place] # (Auto) 0.63 (0.20-0.80) K/uL Eos # (Auto) 0.08 (0.04-0.40) K/uL Baso # (Auto) 0.01 L (0.02-0.10) K/uL Sodium 138 (136-145) mmol/L Potassium 4.0 (3.5-5.1) mmol/L Chloride 102 (98-107) mmol/L Carbon Dioxide 25.4 (21.0-32.0) mmol/L Anion Gap 14.6 (5.0-15.0) mmol/L BUN 29 H D (8-26) mg/dL Creatinine 0.74 (0.55-1.02) mg/dL Est Cr Clr Drug Dosing 76.65 mL/min Estimated GFR (MDRD) > 60 (>60) MLS/MIN BUN/Creatinine Ratio 39.2 H (6-25) Glucose 115 H (74-100) mg/dL Calcium 8.6 (8.5-10.1) mg/dL Magnesium 2.1 (1.8-2.4) mg/dL Total Bilirubin 0.3 D (0.0-1.0) mg/dL AST 21 (15-37) U/L ALT 34 (12-78) U/L Alkaline Phosphatase 63 (46-116) U/L Troponin I < 0.017 (0.000-0.060) ng/mL Total Protein 6.9 (6.4-8.2) g/dL Albumin 3.5 (3.4-5.0) g/dL Globulin 3.4 (2.2-4.2) g/dL Albumin/Globulin Ratio 1.0 (0.8-2.0) Meds: Medications Generic Name Dose Route Start Last Admin Trade Name Freq PRN Reason Stop Dose Admin Sodium Chloride 1,000 mls @ 125 mls/hr 10/25/19 17:45 10/25/19 17:57 Normal Saline IV 125 mls/hr ASDIRECTED ALICIA Administration Discontinued Medications Generic Name Dose Route Start Last Admin Trade Name Freq PRN Reason Stop Dose Admin Acetaminophen/Codeine Phosphate 1 tab 10/25/19 17:39 10/25/19 18:01 Tylenol With Codeine No.3 300mg/30mg PO 10/25/19 17:40 1 tab ONETIME ONE Administration - Re-Assessments/Exams Free Text/Narrative Re-Assessment/Exam: 10/25/19 18:51 Pt got good relief of her chest wall pain and arm pain with T3. EKG - normal Lab work - normal Troponi - negative I had e-emergency read EKG Departure - Departure Time of Disposition: 18:41 Disposition: DC/Tfer to SNF 03 Preliminary Cause of *Q: Sepsis & Multi System Organ Failure Condition: Good Clinical Impression: Acute costochondritis, Left upper arm pain, Anxiety - Discharge Information *PRESCRIPTION DRUG MONITORING PROGRAM REVIEWED*: No *COPY OF PRESCRIPTION DRUG MONITORING REPORT IN PATIENT LILIANA: No Instructions: Costochondritis, [id number], Bursitis, [id number], Chest Wall Pain, [id number] Forms: ED Department Discharge Care Plan Goals: Can alternate ibuprofen with tylenol. Take ibuprofen 600mg then 3 hours later take tylenol 500mg or 650mg and keep alternating as needed. See Dr. Montiel as discussed. Sepsis Event Note (ED) - Focused Exam Vital Signs: Vital Signs Temp Pulse Resp BP Pulse Ox 10/25/19 18:10 97.7 F 108 H 16 122/64 97 10/25/19 17:00 97.7 F 106 H 16 122/64 97 - My Orders Last 24 Hours: My Active Orders 10/25/19 17:34 Chest 1V Frontal [CR] Stat 10/25/19 17:37 EKG Documentation Completion [RC] ASDIRECTED Vital Signs [RC] PER UNIT ROUTINE 10/25/19 17:45 CALCIUM, IONIZED, SERUM Urgent Sodium Chloride 0.9% [Normal Saline] 1,000 ml IV ASDIRECTED - Assessment/Plan Last 24 Hours: My Active Orders 10/25/19 17:34 Chest 1V Frontal [CR] Stat 10/25/19 17:37 EKG Documentation Completion [RC] ASDIRECTED Vital Signs [RC] PER UNIT ROUTINE 10/25/19 17:45 CALCIUM, IONIZED, SERUM Urgent Sodium Chloride 0.9% [Normal Saline] 1,000 ml IV ASDIRECTED
[2019-10-25] MEDS ORDERED: Acetaminophen/Codeine 300-30 MG Tab PO ONE (17:39)
[2019-10-25] MEDS ORDERED: Sodium Chloride 0.9% 1,000 ML IV SCH (17:45)
[2019-10-25 18:12] VITALS: BP 122/64; PULSE 108
--- NOTE | 2019-10-26 10:37 | CR ---
DATE OF SERVICE: 10/25/19 CLINICAL DATA: Chest pain. AP CHEST: Comparison is made to a prior exam dated 05/22/19. The heart size is normal. The lungs are clear. No pneumothorax. No pleural effusions. No evidence of acute intrathoracic disease. [id number] [facility]
== END 2019-10-25 18:55 | disposition home or self-care (01) ==
LOC: LB.ED 16:55
DX: M94.0 Chondrocostal junction syndrome [Tietze] (principal); M79.622 Pain in left upper arm; F41.9 Anxiety disorder, unspecified; I10 Essential (primary) hypertension; E78.00 Pure hypercholesterolemia, unspecified; F32.9 Major depressive disorder, single episode, unspecified; Z90.710 Acquired absence of both cervix and uterus; Z90.49 Acquired absence of other specified parts of digestive tract; Z88.1 Allergy status to other antibiotic agents; Z79.899 Other long term (current) drug therapy
CPT/HCPCS: 36415; 71045; 80053; 82330; 83735; 84484; 85025; 93005; 96360; 99284; 99285-25; A9270-GY; J7030

== ENCOUNTER 2019-10-29 10:05 | Day surgery (SDC) | payer MEDICAID ==
[~2019-10-29 10:05] MED LIST: Metoclopramide 10 MG/2 ML SDV IV PRN; Sodium Chloride 0.9% 1,000 ML IV SCH
[2019-10-29] MEDS ORDERED: Propofol 1,000 MG/100 ML SDV ONE (13:00)
[2019-10-29 13:28] VITALS: BP 110/63; PULSE 64
--- NOTE | 2019-10-29 18:20 | OR ---
DATE OF OPERATION: 10/29/2019 SURGEON: Jez Pa MD PREOPERATIVE DIAGNOSIS: Screening colonoscopy. POSTOPERATIVE DIAGNOSIS: Screening colonoscopy. PROCEDURE: Colonoscopy with polypectomy. ANESTHESIA: MAC. ESTIMATED BLOOD LOSS: Minimal. COMPLICATIONS: None. INDICATION FOR PROCEDURE: The patient is a 64-year-old female who is here today for screening colonoscopy. Last colonoscopy was about 5 years ago. She otherwise denies any change in bowel habits since that time. DESCRIPTION OF PROCEDURE: Informed consent was obtained from the patient. The patient was taken to the operating room and placed on table in left lateral decubitus position. Monitored anesthesia care was administered. Digital rectal exam performed and it was normal. Colonoscope then advanced through the anus directed toward the cecum. Cecum was reached and identified by appendiceal orifice and ileocecal valve. Colonoscope then slowly withdrawn. She did have a small to medium sized diverticula throughout the sigmoid and descending colon. She did have one small semi-pedunculated polyp in the mid descending colon. This was removed with hot snare polypectomy. The colonoscope then further withdrawn. Rectum was otherwise unremarkable. Colonoscope then removed. FINDINGS: Sigmoid and descending colon diverticulosis as well as descending colon polyp. RECOMMENDATIONS: We would recommend repeat surveillance colonoscopy in 5 years. KRISTIAN/PADDY /[id number]
== END 2019-10-29 14:40 | disposition home or self-care (01) ==
LOC: LB.SDS 10:05
PROVIDERS: ATTEND Surgery
DX: Z12.11 Encounter for screening for malignant neoplasm of colon (principal); K63.5 Polyp of colon; K57.30 Diverticulosis of large intestine without perforation or abscess without bleeding; F17.200 Nicotine dependence, unspecified, uncomplicated; E53.8 Deficiency of other specified B group vitamins; R73.01 Impaired fasting glucose; T84.032A Mechanical loosening of internal right knee prosthetic joint, initial encounter; M19.90 Unspecified osteoarthritis, unspecified site; G89.29 Other chronic pain; L98.9 Disorder of the skin and subcutaneous tissue, unspecified; L82.1 Other seborrheic keratosis; K21.9 Gastro-esophageal reflux disease without esophagitis; Z78.0 Asymptomatic menopausal state; Z88.1 Allergy status to other antibiotic agents; Z79.899 Other long term (current) drug therapy
CPT/HCPCS: 45384; J2704; J7030; 88305

== ENCOUNTER 2020-02-18 20:05 | Emergency (ER) | payer MEDICAID ==
[2020-02-18 21:39] VITALS: BP 133/81; PULSE 104
[2020-02-18] MEDS ORDERED: Ketorolac 60 MG/2 ML SDV IM ONE (22:36)
[2020-02-18] MEDS ORDERED: Ketorolac 60 MG/2 ML SDV ONE (22:47)
--- NOTE | 2020-02-19 01:30 | ER ---
REASON FOR EMERGENCY ROOM VISIT: Back pain. HISTORY: This 64-year-old woman with a history of ureterolithiasis and a history of ankylosing spondylitis, comes in with mid to lower back pain radiating to both lower flanks bilaterally since approximately 10 o'clock this morning. It came on gradually and tended to come and go in waves. She stated that it tended to wax and wane throughout the day. Her main concern eventually was that this is felt more like her previous kidney stone than the usual chronic back pain she experiences as a result of her ankylosing spondylosis which has affected her entire spine. She states her urine looks slightly darker than normal, but has not had any hematuria. She does have a history of having ureteral calculus requiring transurethral removal 2 years ago. There are certain characteristics of this pain that are similar to the pain she experienced before. She has not had any nausea. She has not had any fever or dysuria. PAST MEDICAL HISTORY: 1. Ureterolithiasis as mentioned above. 2. Depression. 3. Ankylosing spondylitis. 4. Recent dental extraction. 5. Colon resection for diverticulitis 4 years ago. 6. Right total knee replacement. 7. Lumbar fusion. 8. History of migraine headaches. 9. Anxiety. ALLERGIES: CLINDAMYCIN. MEDICATIONS: Include: 1. Tramadol 50 mg p.o. q.4 hours p.r.n. for pain (recently prescribed for back pain). 2. Lisinopril 10 mg p.o. daily. 3. Effexor XR 37.5 mg p.o. daily and 150 mg p.o. daily. 4. Wellbutrin 300 mg p.o. at bedtime. REVIEW OF SYSTEMS: Pertinent positives and negatives as listed in the HPI. PHYSICAL EXAMINATION: GENERAL: She is a pleasant lady who is in no acute distress. VITAL SIGNS: She is afebrile. Heart rate is 102, blood pressure 143/82, respiratory rate 16, O2 sats 96% on room air HEENT: No scleral icterus is noted. NECK: Supple without adenopathy. CHEST: Clear to auscultation with good air exchange. No wheezes, rhonchi, or rales. CARDIAC: Regular rate without murmur. ABDOMEN: Nondistended. Bowel sounds are present. She has minimal tenderness to deep palpation over both lower flank areas. No guarding or rebound. No percussion tenderness. No palpable mass. BACK: She does have some tightness of her paraspinal muscles. I am not sure if this is new or not. She has no tenderness to percussion over the spinous processes. There is no CVA tenderness. EXTREMITIES: Normal pulses. No edema. LABORATORY DATA: Her CBC was normal with no leukocytosis and no anemia. Her CMP is unremarkable. Her urinalysis does show only a trace of occult blood, but 0 to 5 rbc's per high-power field. No wbc's or bacteria. No nitrite or leukocyte esterase is present. A CT scan was performed to rule out stones and she has no evidence for ureteral calculus. There is no hydronephrosis or hydroureter noted. No intraabdominal findings of significance were noted. IMPRESSION: Back pain, likely related to her ankylosing spondylitis. PLAN: She was given Toradol 60 mg IM x1. She was told to avoid other NSAIDs for the next 24 hours. She does have some Flexeril at home and she will take these for at least the next 2 or 3 days to see if it does not help. I advised her regarding activity and to follow up with her provider, Dr. Montiel early next week if her symptoms have not improved any. All questions were answered. She understands and agrees with this plan. CORY/PADDY /[id number]
--- NOTE | 2020-02-19 11:49 | CT ---
DATE OF SERVICE: 02/18/2020 CLINICAL DATA: Kidney Stone R/O UNENHANCED ABDOMEN AND PELVIC CT: Multislice acquisition through the abdomen and pelvis without IV or oral contrast was performed. Comparison is made to a prior exam dated 12/11/2017. There is a linear density in the lingular segment of the left upper lobe consistent with linear atelectasis or fibrosis. The lung bases are otherwise clear. The unenhanced liver appears normal. No focal hepatic lesions. The gallbladder appears normal. No calcified gallstones. The spleen appears normal. The pancreas appears normal. The right and left adrenals appear normal. The right and left kidneys appear normal. No nephrocalcinosis or nephrolithiasis. No hydronephrosis or hydroureter. There is a small amount of fluid within the gladder. It appears normal. The patient is status post hysterectomy. No evidence of appendicitis. There is a moderate amount of stool present throughout the colon. No free air. No free fluid. No dilated loops of bowel. No adenopathy. No aortic aneurysm. There are surgical changes involving the anterior abdominal wall on the left. There are surgical changes involving the distal sigmoid colon. The patient is status post L5 diskectomy and fusion with internal fixation. No other significant findings. [id number] [facility]
== END 2020-02-18 22:45 | disposition home or self-care (01) ==
LOC: LB.ED 20:05
DX: M54.5 Low back pain (principal); F32.9 Major depressive disorder, single episode, unspecified; F41.9 Anxiety disorder, unspecified; Z79.899 Other long term (current) drug therapy
CPT/HCPCS: 36415; 74176; 80053; 81001; 85025; 96372; 99284-25; J1885

== ENCOUNTER 2020-06-16 04:04 | Emergency (ER) | payer MEDICAID ==
[2020-06-16] MEDS: Ketorolac 60 MG/2 ML SDV IM ONE (04:28)
--- NOTE | 2020-06-16 04:29 | EDM.PDOC ---
ED HPI GENERAL MEDICAL PROBLEM - General Chief Complaint: Back Pain or Injury Stated Complaint: back pain Time Seen by Provider: 06/16/20 04:15 Source of Information: Reports: Patient History Limitations: Reports: No Limitations - History of Present Illness INITIAL COMMENTS - FREE TEXT/NARRATIVE: patient presented to the ER with a c/o low back pain. Reports that she has a spinal fusion surgery last Friday - 4 days ago at [facility] - was d/cd home the following day. She spent the night in the [facility] and drove with her the following day to home in [place]. Was d/cd on Dilaudid PO tab 2mg and muscle relaxants. Reports that her pain has been relatively under control until last night - no fall or injury. Nothing unusual, but pain has not been controlled - 8 out of 10 with movement. No numbness or tingling. No weakness or incontinence. Reports feeling tightness and spasm in the lower back. Decided to come to the ER for further eval. 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, NSAIDS, Other (see below) (dilaudid PO tab) Lower Back Pain Score (Numeric/FACES): 10 - Related Data Allergies Allergy/AdvReac Type Severity Reaction Status Date / Time clindamycin Allergy Unknown Hives Verified 06/16/20 04:16 Home Meds: Home Meds lisinopriL [Prinivil] 10 mg PO DAILY 09/02/13 [History] RABEprazole Sodium [Rabeprazole Sodium] 2 tab PO DAILY 06/14/14 [History] Ibuprofen [Motrin] 800 mg PO TID PRN 11/02/15 [History] Cyanocobalamin (Vitamin B-12) [Cyanocobalamin Injection] 1,000 mcg IJ ASDIRECTED 09/11/16 [History] Rosuvastatin [Crestor] 40 mg PO DAILY 10/25/19 [History] ClonazePAM [KlonoPIN] 0.5 mg PO DAILY PRN 06/16/20 [History] Gabapentin [Neurontin] 600 mg PO TID 06/16/20 [History] HYDROmorphone HCl [Hydromorphone HCl] 2 mg PO Q4H PRN 06/16/20 [History] methocarbamoL [Robaxin] 750 mg PO Q6H PRN 06/16/20 [History] Past Medical History HEENT History: Reports: Impaired Vision Cardiovascular History: Reports: High Cholesterol, Hypertension Gastrointestinal History: Reports: Other (See Below) Other Gastrointestinal History: 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 with bowel resection 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: Neurological History: Reports: Migraines Psychiatric History: Reports: Depression Hematologic History: Reports: B12 Deficiency Oncologic (Cancer) History: Reports: Squamous Cell Carcinoma - Infectious Disease History Infectious Disease History: Reports: Chicken Pox, Mumps, Shingles - Past Surgical History HEENT Surgical History: Reports: Tonsillectomy GI Surgical History: Reports: Appendectomy, Other (See Below) Other GI Surgeries/Procedures: Bowel Resection Female Surgical History: Reports: Section, Hysterectomy Neurological Surgical History: Reports: Lumbar Spine, Spinal Fusion Other Neurological Surgeries/Procedures: ankylosing spondylitis Musculoskeletal Surgical History: Reports: Knee Replacement, Shoulder Surgery Other Musculoskeletal Surgeries/Procedures:: Elbow surgery Social & Family History - Family History Family Medical History: No Pertinent Family History - Caffeine Use Caffeine Use: Reports: Coffee ED ROS GENERAL - Review of Systems Review Of Systems: See Below Constitutional: Reports: No Symptoms HEENT: Reports: No Symptoms Respiratory: Reports: No Symptoms Cardiovascular: Reports: No Symptoms GI/Abdominal: Reports: No Symptoms Musculoskeletal: Reports: Back Pain Skin: Reports: No Symptoms Neurological: Reports: No Symptoms Psychiatric: Reports: Anxiety ED EXAM,LOWER BACK PAIN/INJURY - Physical Exam Exam: See Below Exam Limited By: No Limitations General Appearance: Alert, WD/WN, Anxious, Mild Distress Eye Exam: Bilateral Eye: EOMI Respiratory/Chest: No Respiratory Distress, Lungs Clear Cardiovascular: Normal Peripheral Pulses, Regular Rate, Rhythm GI/Abdominal: Normal Bowel Sounds Back Exam: Normal Inspection, Other (back surgical wound is covered with sterile dressing - no e/o complications) Neurological: Alert, Oriented x 3, Difficulty Walking Course - Vital Signs Last Recorded V/S: Last Vital Signs Temp 36.8 C 06/16/20 04:06 Pulse 90 06/16/20 04:06 Resp 16 06/16/20 04:06 BP 161/71 H 06/16/20 04:06 Pulse Ox 97 06/16/20 04:06 - Orders/Labs/Meds Meds: Medications Discontinued Medications Generic Name Dose Route Start Last Admin Trade Name Carisa PRGerry Reason Stop Dose Admin Diazepam 5 mg 06/16/20 04:23 06/16/20 04:30 Diazepam 5 Mg/Ml Mdv IM 06/16/20 04:24 5 mg ONETIME ONE Administration Ketorolac Tromethamine 60 mg 06/16/20 04:23 06/16/20 04:28 Ketorolac 60 Mg/2 Ml Sdv IM 06/16/20 04:24 60 mg ONETIME ONE Administration Ondansetron HCl 4 mg 06/16/20 04:29 06/16/20 04:31 Ondansetron 4 Mg Tab.Dis PO 06/16/20 04:30 4 mg ONETIME ONE Administration - Re-Assessments/Exams Free Text/Narrative Re-Assessment/Exam: IM Toradol 60mg and Valium 5mg IM were given Reports that they took the edge off. Will be d/cd home and will continue to use her muscle relaxants and PO Dilaudid tabs as previously prescribed. Has an appointment with her PCP on Friday ( in 3 days ) Departure - Departure Time of Disposition: 05:30 Disposition: Home, Self-Care 01 Condition: Good Clinical Impression: Anxiety, Acute exacerbation of chronic low back pain - Discharge Information *PRESCRIPTION DRUG MONITORING PROGRAM REVIEWED*: Not Applicable *COPY OF PRESCRIPTION DRUG MONITORING REPORT IN PATIENT LILIANA: Not Applicable Instructions: Chronic Back Pain Forms: ED Department Discharge Additional Instructions: Follow up with your back Surgeon Sepsis Event Note (ED) - Focused Exam Vital Signs: Vital Signs Temp Pulse Resp BP Pulse Ox 06/16/20 04:06 36.8 C 90 16 161/71 H 97 - Problem List & Annotations (1) Acute exacerbation of chronic low back pain SNOMED Code(s): 810456192 Code(s): M54.5 - LOW BACK PAIN; G89.29 - OTHER CHRONIC PAIN Status: Acute Priority: Medium (2) Anxiety SNOMED Code(s): 16270869 Code(s): F41.9 - ANXIETY DISORDER, UNSPECIFIED Status: Acute Priority: Medium - Problem List Review Problem List Initiated/Reviewed/Updated: Yes - Assessment/Plan Plan: - resume home meds as before - apply heating pads on the affected area - Increase activities slowly as tolerated - follow up with your PCP early next week - Return to the ER if pain got worse or uncontrolled with current meds
[2020-06-16] MEDS: diazePAM 5 MG/ML MDV IM ONE (04:30)
[2020-06-16] MEDS: Ondansetron 4 MG Tab.DIS PO ONE (04:31)
[2020-06-16 04:46] VITALS: BP 161/71; PULSE 90
== END 2020-06-16 04:58 | disposition home or self-care (01) ==
LOC: LB.ED 04:04
DX: G89.29 Other chronic pain (principal); M54.5 Low back pain; F41.9 Anxiety disorder, unspecified; E78.00 Pure hypercholesterolemia, unspecified; I10 Essential (primary) hypertension; Z79.899 Other long term (current) drug therapy; Z88.1 Allergy status to other antibiotic agents
CPT/HCPCS: 96372; 99283; A9270; J1885; J3360

== ENCOUNTER 2020-06-16 13:14 | Emergency (ER) | payer MEDICAID ==
[~2020-06-16 13:14] MED LIST changes: +Acetaminophen/HYDROcodone 325-5 MG Tab ONE; -Metoclopramide 10 MG/2 ML SDV IV PRN; -Sodium Chloride 0.9% 1,000 ML IV SCH
[2020-06-16] MEDS: Orphenadrine 60 MG/2 ML Inj IM ONE (13:42)
[2020-06-16] MEDS: diazePAM 5 MG/ML MDV IV ONE (13:44)
[2020-06-16] MEDS: methylPREDNISolone Sodium Succinate 125 MG/2 ML SDV IM ONE (14:17)
[2020-06-16] MEDS: oxyCODONE 5 MG Tab PO ONE (14:25)
--- NOTE | 2020-06-16 14:26 | EDM.PDOC ---
ED HPI GENERAL MEDICAL PROBLEM - General Chief Complaint: Back Pain or Injury Stated Complaint: BACK SPASMS Time Seen by Provider: 06/16/20 14:00 Source of Information: Reports: Patient History Limitations: Reports: No Limitations - History of Present Illness INITIAL COMMENTS - FREE TEXT/NARRATIVE: patient returned to the ER again for back pain management. Was seen earlier this morning around 3 am for back pain control. had a lower spinal fusion surgery 5 days ago in the [facility]. Was d/cd on Dilaudid PO and muscle relaxants, but reports that her pain has not been well controlled.. Denies a new onset on injury, no numbness or tingling. No inconstance. Reports pain 8 out of 10 when ambulation. h/o anxiety. Have been using cold packs and Tylenol - not helping at all. Patient have been trying to reach her surgeon at [place] - but the office haven't called back yet. Onset: Gradual Duration: Day(s): (5) Location: Reports: Back Quality: Reports: Pressure, Sharp, Throbbing Severity: Severe Worsens with: Reports: Movement Context: Reports: Activity Lower Back Pain Score (Numeric/FACES): 10 - Related Data Allergies Allergy/AdvReac Type Severity Reaction Status Date / Time clindamycin Allergy Unknown Hives Verified 06/16/20 13:28 Home Meds: Home Meds lisinopriL [Prinivil] 10 mg PO DAILY 09/02/13 [History] RABEprazole Sodium [Rabeprazole Sodium] 2 tab PO DAILY 06/14/14 [History] Ibuprofen [Motrin] 800 mg PO TID PRN 11/02/15 [History] Cyanocobalamin (Vitamin B-12) [Cyanocobalamin Injection] 1,000 mcg IJ ASDIRECTED 09/11/16 [History] Rosuvastatin [Crestor] 40 mg PO DAILY 10/25/19 [History] ClonazePAM [KlonoPIN] 0.5 mg PO DAILY PRN 06/16/20 [History] Gabapentin [Neurontin] 600 mg PO TID 06/16/20 [History] HYDROmorphone HCl [Hydromorphone HCl] 2 mg PO Q4H PRN 06/16/20 [History] methocarbamoL [Robaxin] 750 mg PO Q6H PRN 06/16/20 [History] Past Medical History HEENT History: Reports: Impaired Vision Cardiovascular History: Reports: High Cholesterol, Hypertension Gastrointestinal History: Reports: Other (See Below) Other Gastrointestinal History: 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 with bowel resection 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: Musculoskeletal History: Reports: Back Pain, Chronic Neurological History: Reports: Migraines Psychiatric History: Reports: Anxiety, Depression Hematologic History: Reports: B12 Deficiency Oncologic (Cancer) History: Reports: Squamous Cell Carcinoma - Infectious Disease History Infectious Disease History: Reports: Chicken Pox, Mumps, Shingles - Past Surgical History HEENT Surgical History: Reports: Tonsillectomy GI Surgical History: Reports: Appendectomy, Other (See Below) Other GI Surgeries/Procedures: Bowel Resection Female Surgical History: Reports: Section, Hysterectomy Neurological Surgical History: Reports: Lumbar Spine, Spinal Fusion Other Neurological Surgeries/Procedures: ankylosing spondylitis Musculoskeletal Surgical History: Reports: Knee Replacement, Shoulder Surgery Other Musculoskeletal Surgeries/Procedures:: Elbow surgery Social & Family History - Family History Family Medical History: No Pertinent Family History - Caffeine Use Caffeine Use: Reports: Coffee - Recreational Drug Use Recreational Drug Use: No ED ROS GENERAL - Review of Systems Review Of Systems: See Below Constitutional: Reports: No Symptoms HEENT: Reports: No Symptoms Respiratory: Reports: No Symptoms Cardiovascular: Reports: No Symptoms Musculoskeletal: Reports: Back Pain Skin: Reports: No Symptoms Neurological: Reports: Gait Disturbance. Denies: Tingling, Tremors ED EXAM,LOWER BACK PAIN/INJURY - Physical Exam Exam: See Below Exam Limited By: No Limitations General Appearance: Alert, Anxious Eye Exam: Bilateral Eye: EOMI Respiratory/Chest: No Respiratory Distress Cardiovascular: Normal Peripheral Pulses GI/Abdominal: Normal Bowel Sounds, Soft, Non-Tender Extremities: Limited Range of Motion Neurological: Alert, Abnormal Gait Psychiatric: Normal Affect, Anxious Skin Exam: Warm, Dry Course - Vital Signs Last Recorded V/S: Last Vital Signs Temp 36.7 C 06/16/20 16:55 Pulse 93 06/16/20 16:55 Resp 16 06/16/20 16:55 BP 118/63 06/16/20 16:55 Pulse Ox 94 L 06/16/20 16:55 - Orders/Labs/Meds Meds: Medications Discontinued Medications Generic Name Dose Route Start Last Admin Trade Name Freq PRN Reason Stop Dose Admin Diazepam 5 mg 06/16/20 13:36 06/16/20 13:44 Diazepam 5 Mg/Ml Mdv IV 06/16/20 13:37 5 mg ONETIME ONE Administration Methylprednisolone Sodium Succinate 125 mg 06/16/20 14:15 06/16/20 14:17 Methylprednisolone Sodium Succinate 125 Mg/2 Ml Sdv IM 06/16/20 14:16 125 mg ONETIME ONE Administration Morphine Sulfate 5 mg 06/16/20 19:02 Morphine 10 Mg/Ml Syringe IM 06/16/20 19:03 ONETIME ONE Morphine Sulfate Confirm 06/16/20 19:20 Morphine 10 Mg/Ml Sdv Administered 06/16/20 19:21 Dose 10 mg .ROUTE .STK-MED ONE Orphenadrine Citrate 60 mg 06/16/20 13:36 06/16/20 13:42 Orphenadrine 60 Mg/2 Ml Inj IM 06/16/20 13:37 60 mg ONETIME ONE Administration Oxycodone HCl 10 mg 06/16/20 14:20 06/16/20 14:25 Oxycodone 5 Mg Tab PO 06/16/20 14:21 10 mg ONETIME ONE Administration Oxycodone HCl Confirm 06/16/20 14:35 06/16/20 17:01 Oxycodone 5 Mg Tab Administered 06/16/20 14:36 Not Given Dose 10 mg .ROUTE .STK-MED ONE - Re-Assessments/Exams Free Text/Narrative Re-Assessment/Exam: Was given Solumedrol IM 40mg and IM valium Also PO oxycodone one tab - reports significant improvement in pain from 8 down to 4. Patient has asked me to write her a prescription to cover the weekend before she meets her PCP on Friday for a refill. Her home meds were reviewed. was given 10 tab of hydrocodone to help him get through the weekend Departure - Departure Time of Disposition: 19:04 Disposition: Home, Self-Care 01 Condition: Good Clinical Impression: Acute exacerbation of chronic low back pain - Discharge Information *PRESCRIPTION DRUG MONITORING PROGRAM REVIEWED*: Yes *COPY OF PRESCRIPTION DRUG MONITORING REPORT IN PATIENT LILIANA: Yes Instructions: Acute Back Pain, Adult, Chronic Back Pain, [id number] Referrals: PCP,None [Primary Care Provider] - Forms: ED Department Discharge Additional Instructions: - continue home medications as before - follow up with your PCP on Friday - contact your surgeon for a refill if needed Sepsis Event Note (ED) - Evaluation Sepsis Screening Result: No Definite Risk - Focused Exam Vital Signs: Vital Signs Temp Temp Pulse Resp BP Pulse Ox 06/16/20 16:55 36.7 C 93 16 118/63 94 L 06/16/20 13:48 37.4 C 37.0 C 94 18 117/80 98 06/16/20 13:28 36.6 C 94 18 114/80 98 - Problem List & Annotations (1) Acute exacerbation of chronic low back pain SNOMED Code(s): 246194792 Code(s): M54.5 - LOW BACK PAIN; G89.29 - OTHER CHRONIC PAIN Status: Acute Priority: Medium Current Visit: Yes - Problem List Review Problem List Initiated/Reviewed/Updated: Yes - Assessment/Plan Plan: - continue home medications as before - follow up with your PCP on Friday - contact your surgeon for a refill if needed
[2020-06-16 17:00] VITALS: BP 118/63; PULSE 93
[2020-06-16] MEDS: oxyCODONE 5 MG Tab ONE (17:01)
[2020-06-16] MEDS: Morphine 10 MG/ML Syringe IM ONE (19:15)
[2020-06-16] MEDS ORDERED: Morphine 10 MG/ML SDV ONE (19:20)
== END 2020-06-16 19:20 | disposition home or self-care (01) ==
LOC: LB.ED 13:14
DX: G89.29 Other chronic pain (principal); M54.5 Low back pain; E78.00 Pure hypercholesterolemia, unspecified; I10 Essential (primary) hypertension; Z88.1 Allergy status to other antibiotic agents; Z79.899 Other long term (current) drug therapy
CPT/HCPCS: 96372; 96374; 99283; A9270; J2270; J2360; J2930; J3360

== ENCOUNTER 2020-06-18 18:40 | Emergency (ER) | payer MEDICAID ==
[2020-06-18] MEDS ORDERED: diazePAM 5 MG/ML MDV IM ONE (19:19)
--- NOTE | 2020-06-18 20:03 | EDM.PDOC ---
ED HPI GENERAL MEDICAL PROBLEM - General Chief Complaint: Back Pain or Injury Stated Complaint: Low Back Pain Time Seen by Provider: 06/18/20 19:10 Source of Information: Reports: Patient History Limitations: Reports: No Limitations - History of Present Illness INITIAL COMMENTS - FREE TEXT/NARRATIVE: patient returns to the ER for back pain - asking for some pain control h/o chronic back pain, anxiety, headache, and chronic opioids use - has recently underwent a laparoscopic disc surgery in the [facility]. was d/cd on Dilaudid PO and muscle relaxants. 3rd visit to the ER for pain control this week. Denies numbness or tingling. No incontinence or weakness. Reports her pain has relatively been controlled but sometime get muscle spasms that shoot to the sides and lower legs. Has been up and around today, but still gets flares up Have been trying to reach her surgeon - but no one is answering this weekend Denies pain at the site of surgery, no fever or chills. 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: Prescription medications Lower Back Pain Score (Numeric/FACES): 9 - Related Data Allergies Allergy/AdvReac Type Severity Reaction Status Date / Time clindamycin Allergy Unknown Hives Verified 06/16/20 13:28 Home Meds: Home Meds lisinopriL [Prinivil] 10 mg PO DAILY 09/02/13 [History] RABEprazole Sodium [Rabeprazole Sodium] 2 tab PO DAILY 06/14/14 [History] Ibuprofen [Motrin] 800 mg PO TID PRN 11/02/15 [History] Cyanocobalamin (Vitamin B-12) [Cyanocobalamin Injection] 1,000 mcg IJ ASDIRECTED 09/11/16 [History] Rosuvastatin [Crestor] 40 mg PO DAILY 10/25/19 [History] ClonazePAM [KlonoPIN] 0.5 mg PO DAILY PRN 06/16/20 [History] Gabapentin [Neurontin] 600 mg PO TID 06/16/20 [History] HYDROmorphone HCl [Hydromorphone HCl] 2 mg PO Q4H PRN 06/16/20 [History] methocarbamoL [Robaxin] 750 mg PO Q6H PRN 06/16/20 [History] Past Medical History HEENT History: Reports: Impaired Vision Cardiovascular History: Reports: High Cholesterol, Hypertension Respiratory History: Reports: None Gastrointestinal History: Reports: Other (See Below) Other Gastrointestinal History: 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 with bowel resection Genitourinary History: Reports: None 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: Musculoskeletal History: Reports: Back Pain, Chronic Neurological History: Reports: Migraines Psychiatric History: Reports: Anxiety, Depression Endocrine/Metabolic History: Reports: None Hematologic History: Reports: B12 Deficiency Oncologic (Cancer) History: Reports: Squamous Cell Carcinoma - Infectious Disease History Infectious Disease History: Reports: Chicken Pox, Mumps, Shingles - Past Surgical History HEENT Surgical History: Reports: Tonsillectomy GI Surgical History: Reports: Appendectomy, Other (See Below) Other GI Surgeries/Procedures: Bowel Resection Female Surgical History: Reports: Section, Hysterectomy Neurological Surgical History: Reports: Lumbar Spine, Spinal Fusion Other Neurological Surgeries/Procedures: ankylosing spondylitis Musculoskeletal Surgical History: Reports: Knee Replacement, Shoulder Surgery Other Musculoskeletal Surgeries/Procedures:: Elbow surgery, recent L3/L4 repair Social & Family History - Family History Family Medical History: No Pertinent Family History - Tobacco Use Tobacco Use Status *Q: Unknown Ever Used Tobacco Second Hand Smoke Exposure: No - Caffeine Use Caffeine Use: Reports: Coffee ED ROS GENERAL - Review of Systems Review Of Systems: See Below Constitutional: Reports: No Symptoms HEENT: Reports: No Symptoms Respiratory: Reports: No Symptoms Cardiovascular: Reports: No Symptoms GI/Abdominal: Reports: No Symptoms Musculoskeletal: Reports: Back Pain Skin: Reports: No Symptoms Psychiatric: Reports: Anxiety ED EXAM,LOWER BACK PAIN/INJURY - Physical Exam Exam: See Below Exam Limited By: No Limitations General Appearance: Alert, Anxious, Mild Distress Eye Exam: Bilateral Eye: EOMI Head: Atraumatic Respiratory/Chest: No Respiratory Distress, Lungs Clear Cardiovascular: Normal Peripheral Pulses Back Exam: Muscle Spasm. No: Paraspinal Tenderness, Vertebral Tenderness Extremities: Normal Inspection Neurological: Alert, No Motor/Sensory Deficits, Oriented x 3 Comments: surgery site looks good and healing well. no TPP or signs of infection Course - Orders/Labs/Meds Meds: Medications Discontinued Medications Generic Name Dose Route Start Last Admin Trade Name Freq PRN Reason Stop Dose Admin Diazepam 5 mg 06/18/20 19:19 Diazepam 5 Mg/Ml Mdv IM 06/18/20 19:20 ONETIME ONE - Re-Assessments/Exams Free Text/Narrative Re-Assessment/Exam: able to walk around but with minimal discomfort was given IM Valium 5mg and IM solumedrol 125mg reports that pain improved by half and feels better patient has a clonazepam and Motrin at home that she hasn't been using. Recommended to use those on top of her current pain medications Departure - Departure Time of Disposition: 20:06 Disposition: Home, Self-Care 01 Condition: Good Clinical Impression: Acute exacerbation of chronic low back pain - Discharge Information *PRESCRIPTION DRUG MONITORING PROGRAM REVIEWED*: Not Applicable *COPY OF PRESCRIPTION DRUG MONITORING REPORT IN PATIENT LILIANA: Not Applicable Instructions: Managing Pain Without Opioids, Acute Back Pain, Adult, Chronic Back Pain, [id number] - Problem List & Annotations (1) Acute exacerbation of chronic low back pain SNOMED Code(s): 083313761 Code(s): M54.5 - LOW BACK PAIN; G89.29 - OTHER CHRONIC PAIN Status: Acute Priority: Medium - Problem List Review Problem List Initiated/Reviewed/Updated: Yes - Assessment/Plan Plan: - start using prednisone and your clonazepam as prescribed - contact your surgeon office tomorrow for a recommendation - resume home meds as before - recommend to rest tonight
[2020-06-18] MEDS ORDERED: methylPREDNISolone Sodium Succinate 125 MG/2 ML SDV IM ONE (20:10)
[2020-06-18 22:17] VITALS: BP 159/90; PULSE 89
== END 2020-06-18 20:10 | disposition home or self-care (01) ==
LOC: LB.ED 18:40
DX: M54.5 Low back pain (principal); G89.29 Other chronic pain; E78.00 Pure hypercholesterolemia, unspecified; I10 Essential (primary) hypertension; Z79.899 Other long term (current) drug therapy; Z88.1 Allergy status to other antibiotic agents
CPT/HCPCS: 96372; 99283; J2930; J3360

== ENCOUNTER 2020-11-29 22:19 | Emergency (ER) | payer MEDICAID ==
[2020-11-29] MEDS: HYDROmorphone 2 MG/ML SDV SUBCUT ONE (22:45)
[2020-11-29] MEDS: Ketorolac 60 MG/2 ML SDV IM ONE (22:49)
[2020-11-29 23:06] VITALS: BP 154/67
[2020-11-29] MEDS ORDERED: traMADol 50 MG Tab ONE (23:30)
--- NOTE | 2020-11-29 23:57 | EDM.PDOC ---
ED HPI GENERAL MEDICAL PROBLEM - General Chief Complaint: Neck Problem Stated Complaint: NECK PAIN Time Seen by Provider: 11/29/20 22:30 - History of Present Illness INITIAL COMMENTS - FREE TEXT/NARRATIVE: Pt is here with C/O neck pain that she has had for awhile, but it became much worse today after driving to [place] and back. She denies any recent injury. She has had a cracking noise when turning her head for awhile. No visual changes. The pain is worse with any movement. 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: Other (see below) Other Treatments GREEN TIRE INSPECTOR: Methocarbonal - Related Data Allergies Allergy/AdvReac Type Severity Reaction Status Date / Time clindamycin Allergy Unknown Hives Verified 11/29/20 22:53 Home Meds: Home Meds lisinopriL [Prinivil] 10 mg PO DAILY 09/02/13 [History] RABEprazole Sodium [Rabeprazole Sodium] 2 tab PO DAILY 06/14/14 [History] Ibuprofen [Motrin] 800 mg PO TID PRN 11/02/15 [History] Rosuvastatin [Crestor] 40 mg PO DAILY 10/25/19 [History] ClonazePAM [KlonoPIN] 0.5 mg PO DAILY PRN 06/16/20 [History] Gabapentin [Neurontin] 600 mg PO TID 06/16/20 [History] methocarbamoL [Robaxin] 750 mg PO Q6H PRN 06/16/20 [History] Past Medical History HEENT History: Reports: Impaired Vision Cardiovascular History: Reports: High Cholesterol, Hypertension Respiratory History: Reports: None Gastrointestinal History: Reports: Other (See Below) Other Gastrointestinal History: 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 with bowel resection Genitourinary History: Reports: None 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: Musculoskeletal History: Reports: Back Pain, Chronic Neurological History: Reports: Migraines Psychiatric History: Reports: Anxiety, Depression Endocrine/Metabolic History: Reports: None Hematologic History: Reports: B12 Deficiency Immunologic History: Reports: None Oncologic (Cancer) History: Reports: Squamous Cell Carcinoma Dermatologic History: Reports: None - Infectious Disease History Infectious Disease History: Reports: Chicken Pox, Mumps, Shingles - Past Surgical History Head Surgeries/Procedures: Reports: None HEENT Surgical History: Reports: Tonsillectomy Cardiovascular Surgical History: Reports: None Respiratory Surgical History: Reports: None GI Surgical History: Reports: Appendectomy, Other (See Below) Other GI Surgeries/Procedures: Bowel Resection Female Surgical History: Reports: Section, Hysterectomy Neurological Surgical History: Reports: Lumbar Spine, Spinal Fusion Other Neurological Surgeries/Procedures: ankylosing spondylitis Musculoskeletal Surgical History: Reports: Knee Replacement, Shoulder Surgery Other Musculoskeletal Surgeries/Procedures:: Elbow surgery, recent L3/L4 repair Oncologic Surgical History: Reports: None Social & Family History - Family History Family Medical History: No Pertinent Family History - Tobacco Use Tobacco Use Status *Q: Former Tobacco User Used Tobacco, but Quit: Yes Month/Year Tobacco Last Used: year ago Second Hand Smoke Exposure: No - Caffeine Use Caffeine Use: Reports: Energy Drinks Other Caffeine Use: 5-hour energy every day - Recreational Drug Use Recreational Drug Use: No ED ROS GENERAL - Review of Systems Review Of Systems: Comprehensive ROS is negative, except as noted in HPI. Musculoskeletal: Reports: Neck Pain ED EXAM, GENERAL - Physical Exam Exam: See Below General Appearance: Mild Distress Neck: Other (examining her neck reveals pain at the base of her neck on the Rt side and midline. There is no swelling or redness. She has Lidoderm patches on.) Course - Vital Signs Last Recorded V/S: Last Vital Signs Temp Pulse Resp BP 154/67 H 11/29/20 23:02 Pulse Ox - Orders/Labs/Meds Orders: Active Orders 24 hr Category Date Time Status Cervical Spine wo Cont [CT] Stat Exams 11/29/20 Taken Meds: Medications Discontinued Medications Generic Name Dose Route Start Last Admin Trade Name Freq PRN Reason Stop Dose Admin Hydromorphone HCl 1 mg 11/29/20 22:54 11/29/20 22:45 Hydromorphone 2 Mg/Ml Sdv SUBCUT 11/29/20 22:55 1 mg ONETIME ONE Administration Ketorolac Tromethamine 60 mg 11/29/20 22:55 11/29/20 22:49 Ketorolac 60 Mg/2 Ml Sdv IM 11/29/20 22:56 60 mg ONETIME ONE Administration - Re-Assessments/Exams Free Text/Narrative Re-Assessment/Exam: 11/29/20 23:53 Toradol 60 mg and Dilaudid 1 mg were given IM. Her pain improved over the next 30 minutes to where she is comfortable at rest. CT of her C spine reveals loss of curvature of the c spine. The report also shows No acute changes. She will be discharged home. Tramadol will be sent home to take prn. She also has Roboxin, she needs to use it regularly. Apply heat or ice frequently. Departure - Departure Time of Disposition: 23:30 Disposition: Home, Self-Care 01 Condition: Good Clinical Impression: Muscle spasms of neck - Discharge Information *PRESCRIPTION DRUG MONITORING PROGRAM REVIEWED*: Yes *COPY OF PRESCRIPTION DRUG MONITORING REPORT IN PATIENT LILIANA: Yes Instructions: Muscle Cramps and Spasms, [id number] Referrals: PCP,Unknown [Primary Care Provider] - Forms: ED Department Discharge Additional Instructions: Arrived to ED via POV ambulatory to [facility] with c/o neck pain for past couple days that has increased in internsity to 11/26. Denies injury or tingling or unusual sensation to extremities. Sepsis Event Note (ED) - Evaluation Sepsis Screening Result: No Definite Risk - Focused Exam Vital Signs: Vital Signs BP 11/29/20 23:02 154/67 H - My Orders Last 24 Hours: My Active Orders 11/29/20 Cervical Spine wo Cont [CT] Stat - Assessment/Plan Last 24 Hours: My Active Orders 11/29/20 Cervical Spine wo Cont [CT] Stat
--- NOTE | 2020-11-30 10:14 | CT ---
DATE OF SERVICE: 11/29/2020 CLINICAL DATA: PAIN AT BASE OF NECK CERVICAL SPINE CT: Multislice axial acquisition was performed. Axial images and sagittal and coronal reformations are reviewed. The vertebral bodies are of average height and in good alignment. No acute fracture or dislocation. There is mild straightening of the cervical lordosis on the sagittal reformations. This is most likely positional or due to muscle spasm. There are disc margin spurs throughout the cervical spine with disc space narrowing diffusely. There is facet joint hypertrophy throughout the cervical spine. There are degenerative changes involving the atlantoaxial articulation. There is bony encroachment to the neural foramen bilaterally at multiple levels. No significant central stenosis. The soft tissues are unremarkable. The visualized lung apices are clear. [id number] MTDD
== END 2020-11-29 23:40 | disposition home or self-care (01) ==
LOC: LB.ED 22:19
DX: M62.838 Other muscle spasm (principal); E78.00 Pure hypercholesterolemia, unspecified; I10 Essential (primary) hypertension; Z87.891 Personal history of nicotine dependence; Z88.1 Allergy status to other antibiotic agents
CPT/HCPCS: 72125; 96372; 99283-25; A9270-GY; J1170; J1885

== ENCOUNTER 2020-12-01 10:57 | Emergency (ER) | payer MEDICAID ==
[2020-12-01 11:18] VITALS: BP 136/85; PULSE 90
[2020-12-01] MEDS ORDERED: Ketorolac 60 MG/2 ML SDV ONE (11:40)
[2020-12-01] MEDS ORDERED: Ketorolac 60 MG/2 ML SDV IM ONE ×2 (12:40→19:11)
[2020-12-01] MEDS ORDERED: Sodium Chloride 0.9% 1,000 ML IV SCH (14:45)
--- NOTE | 2020-12-01 17:24 | EDM.PDOC ---
ED HPI GENERAL MEDICAL PROBLEM - General Chief Complaint: Neck Problem Stated Complaint: NECK PAIN Time Seen by Provider: 12/01/20 11:00 - History of Present Illness INITIAL COMMENTS - FREE TEXT/NARRATIVE: Pt here with C/O posterior neck pain, that is ongoing. I saw her 2 days ago, she was given Toradol and Dilaudid here, then sent home with Ultram and she had Roboxin. She tells me those meds do not work well enough. She has no falls or injuries lately. CT of the C spine 2 days ago showed loss of curvature, disc margin spurs throughout, bony encroachment to the neural foramin, and degenerative changes. - Related Data Allergies Allergy/AdvReac Type Severity Reaction Status Date / Time clindamycin Allergy Unknown Hives Verified 12/01/20 11:51 Home Meds: Home Meds lisinopriL [Prinivil] 10 mg PO DAILY 09/02/13 [History] RABEprazole Sodium [Rabeprazole Sodium] 2 tab PO DAILY 06/14/14 [History] Ibuprofen [Motrin] 800 mg PO TID PRN 11/02/15 [History] Rosuvastatin [Crestor] 40 mg PO DAILY 10/25/19 [History] ClonazePAM [KlonoPIN] 0.5 mg PO DAILY PRN 06/16/20 [History] Gabapentin [Neurontin] 600 mg PO TID 06/16/20 [History] methocarbamoL [Robaxin] 750 mg PO Q6H PRN 06/16/20 [History] Past Medical History HEENT History: Reports: Impaired Vision Cardiovascular History: Reports: High Cholesterol, Hypertension Respiratory History: Reports: None Gastrointestinal History: Reports: Other (See Below) Other Gastrointestinal History: 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 with bowel resection Genitourinary History: Reports: None 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: Musculoskeletal History: Reports: Back Pain, Chronic Neurological History: Reports: Migraines Psychiatric History: Reports: Anxiety, Depression Endocrine/Metabolic History: Reports: None Hematologic History: Reports: B12 Deficiency Immunologic History: Reports: None Oncologic (Cancer) History: Reports: Squamous Cell Carcinoma Dermatologic History: Reports: None - Infectious Disease History Infectious Disease History: Reports: Chicken Pox, Mumps, Shingles - Past Surgical History Head Surgeries/Procedures: Reports: None HEENT Surgical History: Reports: Tonsillectomy Cardiovascular Surgical History: Reports: None Respiratory Surgical History: Reports: None GI Surgical History: Reports: Appendectomy, Other (See Below) Other GI Surgeries/Procedures: Bowel Resection Female Surgical History: Reports: Section, Hysterectomy Neurological Surgical History: Reports: Lumbar Spine, Spinal Fusion Other Neurological Surgeries/Procedures: ankylosing spondylitis Musculoskeletal Surgical History: Reports: Knee Replacement, Shoulder Surgery Other Musculoskeletal Surgeries/Procedures:: Elbow surgery, recent L3/L4 repair Oncologic Surgical History: Reports: None Social & Family History - Family History Family Medical History: No Pertinent Family History - Caffeine Use Caffeine Use: Reports: Energy Drinks Other Caffeine Use: 5-hour energy every day ED ROS GENERAL - Review of Systems Review Of Systems: Comprehensive ROS is negative, except as noted in HPI. ED EXAM, GENERAL - Physical Exam Exam: See Below General Appearance: Other (Pt is uncomfortable form the pain.) Neck: Other (Pain on the posterior lower c spine going down into the upper T spine.) Course - Vital Signs Last Recorded V/S: Last Vital Signs Temp 98.7 F 12/01/20 11:00 Pulse 90 12/01/20 11:00 Resp 20 12/01/20 11:00 BP 136/85 12/01/20 11:00 Pulse Ox 96 12/01/20 11:00 - Orders/Labs/Meds Meds: Medications Discontinued Medications Generic Name Dose Route Start Last Admin Trade Name Carisa PRN Reason Stop Dose Admin Ketorolac Tromethamine Confirm 12/01/20 11:40 Ketorolac 60 Mg/2 Ml Sdv Administered 12/01/20 11:41 Dose 60 mg .ROUTE .STK-MED ONE Ketorolac Tromethamine 60 mg 12/01/20 12:40 Ketorolac 60 Mg/2 Ml Sdv IM 12/01/20 12:41 ONETIME ONE Lidocaine HCl 3 ml 12/01/20 12:40 Lidocaine 1% 5 Ml Sdv INJECT 12/01/20 12:41 ONETIME ONE - Re-Assessments/Exams Free Text/Narrative Re-Assessment/Exam: 12/01/20 17:24 Trigger point injection was done with 1% Lidocaine. This did provide mild relief of her pain. She will be discharged home with [place] tabs and Flexeril. She is to use ice or heat. Consider a chiropractor tx. And follow up with her PCP early next week for re check and possible MRI. Departure - Departure Time of Disposition: 15:35 Disposition: Home, Self-Care 01 Condition: Good Clinical Impression: Neck pain, acute - Discharge Information *PRESCRIPTION DRUG MONITORING PROGRAM REVIEWED*: Yes *COPY OF PRESCRIPTION DRUG MONITORING REPORT IN PATIENT LILIANA: Yes Referrals: Leonid Montiel MD [Primary Care Provider] - Forms: ED Department Discharge Additional Instructions: Discharge home. Follow up with primary provider as soon as possible for MRI consult. [place] 1 tablet by mouth every 6 hours as needed for pain. Toradol 10mg by mouth 1 tablet every 6 hours for pain Flexeril 10mg by mouth 1 tablet 3 times a day. Do not return to work till 12/08/20 Sepsis Event Note (ED) - Evaluation Sepsis Screening Result: No Definite Risk - Focused Exam Vital Signs: Vital Signs Temp Pulse Resp BP Pulse Ox 12/01/20 11:00 98.7 F 90 20 136/85 96
== END 2020-12-01 11:45 | disposition home or self-care (01) ==
LOC: LB.ED 10:57
DX: M54.2 Cervicalgia (principal); E78.00 Pure hypercholesterolemia, unspecified; I10 Essential (primary) hypertension; Z88.1 Allergy status to other antibiotic agents; Z79.899 Other long term (current) drug therapy
CPT/HCPCS: 96372; 99283; J1885

== ENCOUNTER 2020-12-28 07:58 | Day surgery (SDC) | payer MEDICAID ==
[~2020-12-28 07:58] MED LIST changes: -Acetaminophen/HYDROcodone 325-5 MG Tab ONE; +Sodium Chloride 0.9% 1,000 ML IV SCH
[2020-12-28] MEDS ORDERED: Propofol 1,000 MG/100 ML SDV ONE (09:30)
[2020-12-28] MEDS ORDERED: Glycopyrrolate 0.2 MG/ML 2 ML SDV ONE (09:30)
--- NOTE | 2020-12-28 10:23 | OR ---
DATE OF OPERATION: 12/28/2020 SURGEON: Jez Pa MD PREOPERATIVE DIAGNOSES: Gastroesophageal reflux disease and dysphagia. POSTOPERATIVE DIAGNOSES: Gastroesophageal reflux disease and dysphagia. PROCEDURE: EGD with biopsy. ANESTHESIA: MAC. ESTIMATED BLOOD LOSS: Minimal. COMPLICATIONS: None. INDICATION FOR THE PROCEDURE: The patient is a 65-year-old female who has a long history of GERD. She has been on AcipHex for years. Also, new complaints of dysphagia in the proximal esophagus at the back of the throat. She is here today for EGD. DESCRIPTION OF PROCEDURE: Informed consent was obtained from the patient. The patient was taken to the operating room, placed on table in the left lateral decubitus position. Monitored anesthesia care was administered. Esophagogastroscope was then advanced through the oral cavity, directed towards the duodenum. Duodenum was reached and appeared normal. Gastric antrum did have some minimal inflammation. Cold forceps biopsy was taken to check for H pylori. Retroflexion performed and was also otherwise unremarkable. GE junction was unremarkable. No stenosis identified. Remainder of the esophagus also appeared unremarkable. The proximal esophagus, no strictures noted as well. The scope was then removed. FINDINGS: Mild inflammation of the gastric antrum, otherwise unremarkable. RECOMMENDATIONS: We will follow up on biopsies. If positive for H pylori, we will need antibiotics. Otherwise, continue current medications, and for her dysphagia, we would recommend speech pathology referral. NEHEMIAH /[id number]
[2020-12-28 10:39] VITALS: BP 140/72; PULSE 88
== END 2020-12-28 10:57 | disposition home or self-care (01) ==
LOC: LB.SDS 07:58
PROVIDERS: ATTEND Surgery
DX: K29.50 Unspecified chronic gastritis without bleeding (principal); K31.89 Other diseases of stomach and duodenum; K21.9 Gastro-esophageal reflux disease without esophagitis; R13.10 Dysphagia, unspecified
CPT/HCPCS: J2704; J3490; J7030

== ENCOUNTER 2021-02-07 14:44 | Emergency (ER) | payer MEDICAID ==
[2021-02-07] MEDS ORDERED: Orphenadrine 60 MG/2 ML Inj IM ONE (15:02)
[2021-02-07] MEDS ORDERED: Ketorolac 30 MG/ML SDV IM ONE (15:02)
[2021-02-07] MEDS ORDERED: Ketorolac 30 MG/ML SDV ONE (15:15)
[2021-02-07] MEDS ORDERED: Orphenadrine 60 MG/2 ML Inj ONE (15:15)
--- NOTE | 2021-02-07 16:10 | EDM.PDOC ---
ED HPI GENERAL MEDICAL PROBLEM - General Chief Complaint: Back Pain or Injury Stated Complaint: BACK PAIN Time Seen by Provider: 02/07/21 14:45 Source of Information: Reports: Patient History Limitations: Reports: No Limitations - History of Present Illness INITIAL COMMENTS - FREE TEXT/NARRATIVE: 65-year-old female presents to the ED after a fall that she experienced yesterday from standing on ice. Patient fell striking her left to the ground, which initiated lower back pain and spasms. She rates the pain as a 6/10 on the pain scale. Pain radiates just above the belt line bilateral. Patient has not done anything to treat at home. When she fell there was no loss of consciousness she does shake her head neck or back. Patient denies any chest pain, shortness of breath, altered mental status, nausea vomiting, constipation/diarrhea, blurred vision, headache - Related Data Allergies Allergy/AdvReac Type Severity Reaction Status Date / Time clindamycin Allergy Unknown Hives Verified 02/07/21 14:56 Home Meds: Home Meds lisinopriL [Prinivil] 10 mg PO DAILY 09/02/13 [History] RABEprazole Sodium [Rabeprazole Sodium] 2 tab PO DAILY 06/14/14 [History] Ibuprofen [Motrin] 800 mg PO DAILY PRN 11/02/15 [History] Rosuvastatin [Crestor] 40 mg PO DAILY 10/25/19 [History] ClonazePAM [KlonoPIN] 0.5 mg PO DAILY PRN 06/16/20 [History] Gabapentin [Neurontin] 600 mg PO TID 06/16/20 [History] Cholecalciferol (Vitamin D3) [Vitamin D3] 10 mcg PO DAILY 02/07/21 [History] Venlafaxine [Effexor XR] 75 mg PO DAILY 02/07/21 [History] buPROPion HCL [Bupropion Xl] 300 mg PO DAILY 02/07/21 [History] Past Medical History - Past Health History Medical/Surgical History: Denies Medical/Surgical History HEENT History: Reports: Impaired Vision Cardiovascular History: Reports: High Cholesterol, Hypertension Respiratory History: Reports: None Gastrointestinal History: Reports: Other (See Below) Other Gastrointestinal History: 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 with bowel resection Genitourinary History: Reports: None 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: Musculoskeletal History: Reports: Back Pain, Chronic Neurological History: Reports: Migraines Psychiatric History: Reports: Anxiety, Depression Endocrine/Metabolic History: Reports: None Hematologic History: Reports: B12 Deficiency Immunologic History: Reports: None Oncologic (Cancer) History: Reports: Squamous Cell Carcinoma Dermatologic History: Reports: None - Infectious Disease History Infectious Disease History: Reports: Chicken Pox, Mumps, Shingles - Past Surgical History HEENT Surgical History: Reports: Tonsillectomy Oncologic Surgical History: Reports: None Social & Family History - Family History Family Medical History: No Pertinent Family History - Caffeine Use Caffeine Use: Reports: Energy Drinks Other Caffeine Use: 5-hour energy every day ED ROS GENERAL - Review of Systems Review Of Systems: Comprehensive ROS is negative, except as noted in HPI. ED EXAM,LOWER BACK PAIN/INJURY - Physical Exam Exam: See Below Text/Narrative:: ABC intact. No apparent distress. No obvious trauma. Speaking in full sentences. Alert and oriented x3, GCS 456. Exam Limited By: No Limitations General Appearance: Alert, WD/WN, No Apparent Distress Eye Exam: Bilateral Eye: EOMI, PERRL Ears: Normal External Exam, Hearing Grossly Normal Head: Atraumatic, Normocephalic Neck: Normal Inspection, Supple, Non-Tender, Full Range of Motion. No: Limited Range of Motion, Tender Lateral, Tender Midline Respiratory/Chest: No Respiratory Distress, Lungs Clear, Normal Breath Sounds, No Accessory Muscle Use, Chest Non-Tender Cardiovascular: Normal Peripheral Pulses, Regular Rate, Rhythm, No Edema, No Gallop, No JVD, No Murmur, No Rub GI/Abdominal: Soft, Non-Tender, No Distention, No Mass Back Exam: Normal Inspection, Muscle Spasm (Lower lumbar L4-L5), Other (Negative straight leg raise test bilateral good's push pull and leg strength bilateral). No: Paraspinal Tenderness, Vertebral Tenderness Extremities: Normal Inspection, Normal Range of Motion, Non-Tender, No Pedal Edema, Normal Capillary Refill Neurological: Alert, Normal Mood/Affect, Normal Gait, Oriented x 3 Psychiatric: Normal Affect, Normal Mood Skin Exam: Warm, Dry, Intact, Normal Color, No Rash Course - Orders/Labs/Meds Orders: Active Orders 24 hr Category Date Time Status Lumbar Spine 2 or 3V [CR] Stat Exams 02/07/21 15:54 Taken Thoracic Spine 2V [CR] Stat Exams 02/07/21 15:03 Taken Meds: Medications Discontinued Medications Generic Name Dose Route Start Last Admin Trade Name Carisa PRN Reason Stop Dose Admin Ketorolac Tromethamine 30 mg 02/07/21 15:02 02/07/21 15:47 Ketorolac 30 Mg/Ml Sdv IM 02/07/21 15:03 30 mg ONETIME ONE Administration Ketorolac Tromethamine Confirm 02/07/21 15:15 02/07/21 15:47 Ketorolac 30 Mg/Ml Sdv Administered 02/07/21 15:16 Not Given Dose 30 mg .ROUTE .STK-MED ONE Orphenadrine Citrate 60 mg 02/07/21 15:02 02/07/21 15:47 Orphenadrine 60 Mg/2 Ml Inj IM 02/07/21 15:03 60 mg ONETIME ONE Administration Orphenadrine Citrate Confirm 02/07/21 15:15 02/07/21 15:47 Orphenadrine 60 Mg/2 Ml Inj Administered 02/07/21 15:16 Not Given Dose 60 mg .ROUTE .STK-MED ONE - Radiology Interpretation Free Text/Narrative:: There is diffuse osteopenia. There is mild S-shaped scoliosis of the thoracic spine. There is mild anterior wedging of multiple mid and lower thoracic vertebrae age indeterminate probably chronic. There is no disc margin spurs throughout the thoracic spine with a disc space narrowing diffusely Radiology report for thoracic spine no acute fracture or dislocation. No focal lytic or blastic bone lesions. Lumbar sacral: Comparison made to prior exam dated 08 January 2021. There is diffuse osteopenia. There is a right convexity rotoscoliosis of the mid lumbar spine. The patient is status post L4-L5 and S1 L5 discectomies with disc prosthesis in place. There is internal fixation of L4-L5 with posterior metal rods and a pedicle screws. There is a internal fixation of L5-S1 with an anterior metal plate and multiple screws. There is degenerative disc disease at multiple levels in the lower thoracic and lumbar spine. There is a facet joint hypertrophy at multiple levels. No changes from prior study. No acute abnormalities. Departure - Departure Time of Disposition: 17:00 Disposition: Home, Self-Care 01 Condition: Good Clinical Impression: Back pain Qualifiers: Back pain location: low back pain Chronicity: acute Back pain laterality: midline Sciatica presence: without sciatica Qualified Code(s): M54.50 - Low back pain, unspecified - Discharge Information *PRESCRIPTION DRUG MONITORING PROGRAM REVIEWED*: No *COPY OF PRESCRIPTION DRUG MONITORING REPORT IN PATIENT LILIANA: No Instructions: Cyclobenzaprine tablets, Lumbar Strain, Back Injury Prevention Referrals: Leonid Montiel MD [Primary Care Provider] - Forms: ED Department Discharge Additional Instructions: Take over the counter anti-inflammatory and pain medications as needed. Rest, stretch, apply heat or ice to area of concern. Follow up with primary care as needed. - My Orders Last 24 Hours: My Active Orders 02/07/21 15:03 Thoracic Spine 2V [CR] Stat 02/07/21 15:54 Lumbar Spine 2 or 3V [CR] Stat - Assessment/Plan Last 24 Hours: My Active Orders 02/07/21 15:03 Thoracic Spine 2V [CR] Stat 02/07/21 15:54 Lumbar Spine 2 or 3V [CR] Stat Assessment:: 65-year-old female presents to the ED for evaluation of back pain. They have extensive history of back pain to include discectomies with hardware. Pain has improved with interventions in the ED. Patient fell striking her buttocks therefore x-rays were indicated. There are no red flag symptoms to suggest a CT or MRI is indicated at this point. The patient has not had a fever, saddle/perineal anesthesia, bilateral foot numbness, bowel or bladder dysfunction. There is no clinical evidence of cauda equina syndrome, discitis, spinal/epidural space hematoma or epidural abscess. The neurological exam is normal and the patient's symptoms seem consistent with a muscle skeletal issues and significant muscle spasm. The patient will be discharged with medications to use as directed. Ice or heat to the back and stretching exercises. No heavy lifting bending or twisting. Return if increasing pain, numbness, weakness or bowel or bladder dysfunction. Patient was advised to schedule follow-up with her primary care provider within 3 days to reassess for symptoms Plan: ABC, history, exam, imaging, patient education/shared decision-making, treatment plan was explained to the patient patient understood and all questions were answered to the patient's satisfaction. Patient was discharged in stable condition Patient was sent home with a prescription for Flexeril. 15 tablets 3 times miryam ly. Patient advised to take ibuprofen or Tylenol as needed for pain on a scheduled basis per instructions on label.
[2021-02-07] MEDS ORDERED: Cyclobenzaprine 10 MG Tab ONE (16:30)
--- NOTE | 2021-02-08 09:40 | CR ---
Date of Service: 02/07/21 Clinical Data: Back pain Thoracic spine: There is diffuse osteopenia. There is mild S-shaped scoliosis of the thoracic spine. There is mild anterior wedging of multiple mid and lower thoracic vertebrae, age indeterminate, probably chronic. There are disc margins spurs throughout the thoracic spine with disc space narrowing diffusely. No acute fracture or dislocation. No focal lytic or blastic bone lesions. MTDD
--- NOTE | 2021-02-08 09:55 | CR ---
Date of Service: 02/07/21 Clinical Data: Back pain Lumbar spine: Comparison is made to a prior exam dated 08 January 2021. There is diffuse osteopenia. There is right convexity rotoscoliosis of the mid lumbar spine. The patient is status post L4-L5 and L5-S1 discectomies with disc prostheses in place. There is internal fixation of L4 and L5 with posterior metal rods and pedicle screws. There is internal fixation of L5 and S1 with an anterior metal plate and multiple screws. There is degenerative disc disease at multiple levels in the lower thoracic and lumbar spine. There is facet joint hypertrophy at multiple levels. No changes from the prior study. No acute abnormalities. Dictated and Authenticated by: Luis Arce MD 02/07/2021 4:21 PM Central Time ([place] & [place]) [facility]
== END 2021-02-07 16:55 | disposition home or self-care (01) ==
LOC: LB.ED 14:44
DX: M54.50 Low back pain, unspecified (principal); E78.00 Pure hypercholesterolemia, unspecified; I10 Essential (primary) hypertension; Z88.1 Allergy status to other antibiotic agents; Z79.899 Other long term (current) drug therapy
CPT/HCPCS: 72070; 72100; 96372; 99283; A9270; J1885; J2360

== ENCOUNTER 2021-06-19 08:36 | Emergency (ER) | payer MEDICAID ==
[2021-06-19] MEDS: HYDROmorphone 2 MG/ML SDV IM ONE ×2 (08:57→09:30)
[2021-06-19] MEDS ORDERED: HYDROmorphone 2 MG/ML SDV ONE (09:07)
[2021-06-19] MEDS ORDERED: HYDROmorphone 2 MG/ML SDV IM ONE (09:27)
[2021-06-19 10:08] VITALS: BP 111/60; PULSE 64
[2021-06-19] MEDS ORDERED: Ondansetron 4 MG Tab.DIS ONE (10:20)
== END 2021-06-19 10:36 | disposition home or self-care (01) ==
LOC: LB.ED 08:36
DX: N20.0 Calculus of kidney (principal); E78.00 Pure hypercholesterolemia, unspecified; I10 Essential (primary) hypertension; Z79.899 Other long term (current) drug therapy; Z88.8 Allergy status to other drugs, medicaments and biological substances
CPT/HCPCS: 36415; 74176; 80053; 81003; 83690; 85025; 96372; 99282; 99284-25; J1170; Q0162

== ENCOUNTER 2021-06-21 08:30 | Emergency (ER) | payer MEDICAID ==
[2021-06-21] MEDS ORDERED: Ketorolac 60 MG/2 ML SDV ONE (09:01)
[2021-06-21] MEDS ORDERED: Acetaminophen/oxyCODONE 325-5 MG Tab ONE (09:05)
[2021-06-21] MEDS ORDERED: Acetaminophen/oxyCODONE 325-5 MG Tab PO PRN (09:29)
[2021-06-21] MEDS ORDERED: Ketorolac 60 MG/2 ML SDV IM ONE (09:29)
[2021-06-21 09:35] VITALS: BP 143/74; PULSE 78
== END 2021-06-21 09:40 | disposition home or self-care (01) ==
LOC: LB.ED 08:30
DX: N20.0 Calculus of kidney (principal); E78.00 Pure hypercholesterolemia, unspecified; I10 Essential (primary) hypertension; Z88.1 Allergy status to other antibiotic agents; Z79.899 Other long term (current) drug therapy
CPT/HCPCS: 96372; 99283; A9270; J1885; 99282

== ENCOUNTER 2021-07-08 17:54 | Emergency (ER) | payer MEDICAID ==
[2021-07-08] MEDS ORDERED: Acetaminophen/oxyCODONE 325-5 MG Tab ONE ×2 (18:00→19:03)
[2021-07-08] MEDS ORDERED: Cyclobenzaprine 10 MG Tab ONE (18:00)
[2021-07-08 18:16] VITALS: BP 150/73; PULSE 91
[2021-07-08] MEDS ORDERED: Acetaminophen/oxyCODONE 325-5 MG Tab PO PRN (18:49)
[2021-07-08] MEDS ORDERED: Dexamethasone 4 MG Tab PO ONE (18:50)
== END 2021-07-08 19:04 | disposition home or self-care (01) ==
LOC: LB.ED 17:54
DX: M54.12 Radiculopathy, cervical region (principal); E78.00 Pure hypercholesterolemia, unspecified; I10 Essential (primary) hypertension; Z90.49 Acquired absence of other specified parts of digestive tract; Z90.710 Acquired absence of both cervix and uterus; Z79.899 Other long term (current) drug therapy; Z88.1 Allergy status to other antibiotic agents
CPT/HCPCS: 99283; A9270; J8540; 99282

== ENCOUNTER 2022-02-19 19:09 | Emergency (ER) | payer MEDICAID ==
[2022-02-19 21:47] VITALS: BP 126/79; PULSE 115
== END 2022-02-19 21:40 | disposition home or self-care (01) ==
LOC: LB.ED 19:09
DX: K20.90 Esophagitis, unspecified without bleeding (principal); E86.0 Dehydration; Z88.1 Allergy status to other antibiotic agents; Z79.899 Other long term (current) drug therapy
CPT/HCPCS: 36415; 71260; 80053; 84484; 85025; 93005; 99285

== ENCOUNTER 2022-02-25 01:46 | Emergency (ER) | payer MEDICAID ==
[2022-02-25] MEDS ORDERED: methylPREDNISolone Sodium Succinate 125 MG/2 ML SDV IM ONE (02:15)
[2022-02-25] MEDS ORDERED: Cetirizine 10 MG Tab PO ONE (02:59)
[2022-02-25] MEDS: predniSONE 10 MG Tab PO ONE (03:00)
[2022-02-25] MEDS ORDERED: diphenhydrAMINE 25 MG Cap PO ONE (03:00)
[2022-02-25] MEDS ORDERED: predniSONE 20 MG Tab PO ONE (03:03)
[2022-02-25 03:13] VITALS: BP 148/79; PULSE 106
[2022-02-25] MEDS ORDERED: predniSONE 20 MG Tab ONE (03:13)
[2022-02-25] MEDS ORDERED: diphenhydrAMINE 25 MG Cap ONE (03:13)
== END 2022-02-25 03:10 | disposition home or self-care (01) ==
LOC: LB.ED 01:46
DX: L50.9 Urticaria, unspecified (principal); E78.00 Pure hypercholesterolemia, unspecified; I10 Essential (primary) hypertension; Z88.1 Allergy status to other antibiotic agents; Z79.899 Other long term (current) drug therapy; Z90.710 Acquired absence of both cervix and uterus
CPT/HCPCS: 96372; 99282; A9270-GY; J2930; J7512

== ENCOUNTER 2022-05-09 19:18 | Emergency (ER) | payer MEDICARE, MEDICAID ==
[2022-05-09 20:59] VITALS: BP 119/62; PULSE 96
== END 2022-05-09 20:45 | disposition home or self-care (01) ==
LOC: LB.ED 19:18
DX: S92.514A Nondisplaced fracture of proximal phalanx of right lesser toe(s), initial encounter for closed fracture (principal); E78.00 Pure hypercholesterolemia, unspecified; I10 Essential (primary) hypertension; Z88.1 Allergy status to other antibiotic agents; Z79.899 Other long term (current) drug therapy; Z87.891 Personal history of nicotine dependence; W20.8XXA Other cause of strike by thrown, projected or falling object, initial encounter
CPT/HCPCS: 73660-T8; 99282; 99283

== ENCOUNTER 2022-11-16 14:08 | Emergency (ER) | payer MEDICARE, MEDICAID ==
[2022-11-16] MEDS ORDERED: Ciprofloxacin 0.3% Ophth Soln 2.5 ML Bottle ONE (15:15)
[2022-11-16 15:39] VITALS: BP 141/76; PULSE 92
== END 2022-11-16 15:25 | disposition home or self-care (01) ==
LOC: LB.ED 14:08
DX: H10.9 Unspecified conjunctivitis (principal); M13.89 Other specified arthritis, multiple sites; Z88.1 Allergy status to other antibiotic agents; Z79.899 Other long term (current) drug therapy
CPT/HCPCS: 99282; 99283; A9270-GY

== ENCOUNTER 2022-11-19 20:44 | Emergency (ER) | payer MEDICARE, MEDICAID ==
[2022-11-19] MEDS: Ondansetron 4 MG Tab.DIS PO ONE (21:15)
[2022-11-19] MEDS: Ketorolac 60 MG/2 ML SDV ONE (21:25)
[2022-11-19] MEDS: Ondansetron 4 MG Tab.DIS ONE (21:25)
[2022-11-19] MEDS: Ketorolac 60 MG/2 ML SDV IM ONE (21:26)
[2022-11-19 21:30] VITALS: PULSE 96
[2022-11-19 21:52] VITALS: BP 134/74
[2022-11-19] MEDS ORDERED: traMADol 50 MG Tab ONE (22:00)
== END 2022-11-19 22:10 | disposition home or self-care (01) ==
LOC: LB.ED 20:44
DX: S80.02XA Contusion of left knee, initial encounter (principal); I10 Essential (primary) hypertension; Z87.891 Personal history of nicotine dependence; Z86.16 Personal history of COVID-19; Z79.899 Other long term (current) drug therapy; Z88.1 Allergy status to other antibiotic agents; W01.0XXA Fall on same level from slipping, tripping and stumbling without subsequent striking against object, initial encounter
CPT/HCPCS: 73562; 96372; 99283; A9270; J1885; Q0162

== ENCOUNTER 2022-11-29 09:47 | Emergency (ER) | payer MEDICARE, MEDICAID ==
[2022-11-29] MEDS ORDERED: HYDROmorphone 2 MG/ML Syringe IVPUSH ONE ×2 (12:16→14:51)
[2022-11-29] MEDS ORDERED: Sodium Chloride 0.9% 10 ML Syringe FLUSH PRN (12:16)
[2022-11-29] MEDS ORDERED: HYDROmorphone 2 MG/ML Syringe ONE ×2 (12:25→14:53)
[2022-11-29 12:26] LABS: BASOPHILS ABSOLUTE AUTO 0.02 K/uL (0.02-0.10); BASOPHILS PERCENT AUTO 0.2 % (0.0-0.5); EOSINOPHILS ABSOLUTE AUTO 0.15 K/uL (0.04-0.40); EOSINOPHILS PERCENT AUTO 1.7 % (1.0-5.0); HEMATOCRIT 36.9 % (37.0-47.0); HEMOGLOBIN 12.1 g/dL (11.5-16.5); LYMPHOCYTES ABSOLUTE AUTO 1.55 K/uL (1.50-4.00); LYMPHOCYTES PERCENT AUTO 17.1 % (20.0-40.0); MEAN CORPUSCULAR HEMOGLOBIN 27.5 pg (27.0-32.0); MEAN CORPUSCULAR HGB CONC 32.8 g/dL (31.0-35.0); MEAN CORPUSCULAR VOLUME 84 fL (76-96); MEAN PLATELET VOLUME 8.9 fL (6.0-10.0); MONOCYTES ABSOLUTE AUTO 0.67 K/uL (0.20-0.80); MONOCYTES PERCENT AUTO 7.4 % (3.0-10.0); NEUTROPHILS ABSOLUTE AUTO 6.65 K/uL (2.00-7.50); NEUTROPHILS PERCENT AUTO 73.6 % (45.0-70.0); PLATELET COUNT,PLT 297 K/uL (150-500); RED CELL DISTRIBUTION WIDTH 13.5 % (11.0-16.0)
[2022-11-29 12:43] LABS: BUN/CREATININE RATIO 29.8 (6-25); C-REACTIVE PROTEIN 2.7 mg/L (0.0-3.0); CALCIUM 8.9 mg/dL (8.5-10.1); CARBON DIOXIDE,CO2 30.7 mmol/L (21.0-32.0); CREATININE 0.57 mg/dL (0.55-1.02); EST CRCL DRUG DOSING (CG) 95.69 mL/min; POTASSIUM,K 3.7 mmol/L (3.5-5.1)
[2022-11-29] MEDS ORDERED: Ketorolac 30 MG/ML SDV IVPUSH ONE (13:47)
[2022-11-29] MEDS ORDERED: Ketorolac 30 MG/ML SDV ONE (13:57)
[2022-11-29 15:30] VITALS: BP 120/66; PULSE 88
== END 2022-11-29 15:20 | disposition home or self-care (01) ==
LOC: LB.ED 09:47 → SUPCPDRO 09:47 → LB.ED 15:20
DX: S80.02XA Contusion of left knee, initial encounter (principal); M25.552 Pain in left hip; I10 Essential (primary) hypertension; E11.9 Type 2 diabetes mellitus without complications; Z88.1 Allergy status to other antibiotic agents; Z79.899 Other long term (current) drug therapy
CPT/HCPCS: 36415; 73700-LT; 80048; 85025; 86140; 96374; 96375; 96376; 99284-25; J1170; J1885

== ENCOUNTER 2023-01-19 18:20 | Emergency (ER) | payer MEDICARE, MEDICAID ==
[~2023-01-19 18:20] MED LIST changes: +Acetaminophen/HYDROcodone 325-5 MG Tab ONE; -Sodium Chloride 0.9% 1,000 ML IV SCH; +Sulfamethoxazole/Trimethoprim 800-160 MG Tab ONE
[2023-01-19] MEDS ORDERED: Ketorolac 60 MG/2 ML SDV ONE (19:09)
[2023-01-19] MEDS ORDERED: Ketorolac 60 MG/2 ML SDV IM ONE (19:14)
[2023-01-19 20:54] VITALS: BP 154/76; PULSE 88
== END 2023-01-19 20:25 | disposition home or self-care (01) ==
LOC: LB.ED 18:20
DX: S63.501A Unspecified sprain of right wrist, initial encounter (principal); I10 Essential (primary) hypertension; E78.00 Pure hypercholesterolemia, unspecified; K21.9 Gastro-esophageal reflux disease without esophagitis; E03.9 Hypothyroidism, unspecified; Z88.1 Allergy status to other antibiotic agents; Z87.891 Personal history of nicotine dependence; Z86.16 Personal history of COVID-19; W18.30XA Fall on same level, unspecified, initial encounter; Z90.49 Acquired absence of other specified parts of digestive tract; Z90.710 Acquired absence of both cervix and uterus; Z79.899 Other long term (current) drug therapy
CPT/HCPCS: 29125; 73110-RT; 99283; A9270-GY; J1885

== ENCOUNTER 2023-08-23 19:36 | Emergency (ER) | payer MEDICARE ==
[2023-08-23 20:09] VITALS: BP 157/78; PULSE 94
== END 2023-08-23 20:23 | disposition home or self-care (01) ==
LOC: LB.ED 19:36
DX: L29.9 Pruritus, unspecified (principal); I10 Essential (primary) hypertension; E78.00 Pure hypercholesterolemia, unspecified; Z79.899 Other long term (current) drug therapy; Z88.1 Allergy status to other antibiotic agents
CPT/HCPCS: 99282

== ENCOUNTER 2023-12-18 18:28 | Emergency (ER) | payer MEDICARE ==
[~2023-12-18 18:28] MED LIST changes: -Acetaminophen/HYDROcodone 325-5 MG Tab ONE; +Ondansetron 4 MG Tab.DIS ONE; -Sulfamethoxazole/Trimethoprim 800-160 MG Tab ONE
[2023-12-18] MEDS: Ondansetron 4 MG Tab.DIS PO ONE (19:00)
[2023-12-18] MEDS: Ondansetron 4 MG Tab.DIS ONE (19:51)
[2023-12-18 20:26] LABS: ANION GAP 12.6 mmol/L (5.0-15.0); BLOOD UREA NITROGEN,BUN 18 mg/dL (8-26); BUN/CREATININE RATIO 33.3 (6-25); CARBON DIOXIDE,CO2 29.4 mmol/L (21.0-32.0); CHLORIDE,CL 103 mmol/L (98-107); CREATININE 0.54 mg/dL (0.55-1.02); EST CRCL DRUG DOSING (CG) 99.66 mL/min; ESTIMATED GFR 101 mL/min (>60); GLUCOSE RANDOM 96 mg/dL (74-100); SODIUM,NA 141 mmol/L (136-145)
[2023-12-18 20:36] LABS: C-REACTIVE PROTEIN < 5.0 mg/L (<5.0)
[2023-12-18 20:39] LABS: BASOPHILS ABSOLUTE AUTO 0.01 K/uL (0.02-0.10); BASOPHILS PERCENT AUTO 0.2 % (0.0-0.5); EOSINOPHILS ABSOLUTE AUTO 0.27 K/uL (0.04-0.40); EOSINOPHILS PERCENT AUTO 4.2 % (1.0-5.0); HEMATOCRIT 42.4 % (37.0-47.0); HEMOGLOBIN 13.9 g/dL (11.5-16.5); LYMPHOCYTES ABSOLUTE AUTO 1.21 K/uL (1.50-4.00); LYMPHOCYTES PERCENT AUTO 18.7 % (20.0-40.0); MEAN CORPUSCULAR HEMOGLOBIN 26.9 pg (27.0-32.0); MEAN CORPUSCULAR HGB CONC 32.8 g/dL (31.0-35.0); MEAN CORPUSCULAR VOLUME 82 fL (76-96); MONOCYTES ABSOLUTE AUTO 0.53 K/uL (0.20-0.80); MONOCYTES PERCENT AUTO 8.2 % (3.0-10.0); NEUTROPHILS ABSOLUTE AUTO 4.44 K/uL (2.00-7.50); NEUTROPHILS PERCENT AUTO 68.7 % (45.0-70.0); PLATELET COUNT,PLT 257 K/uL (150-500); RED BLOOD CELL COUNT 5.16 M/uL (3.80-5.80); RED CELL DISTRIBUTION WIDTH 14.3 % (11.0-16.0); WHITE BLOOD CELL COUNT,WBC 6.5 K/uL (4.0-11.0)
[2023-12-18 20:57] VITALS: BP 144/71; PULSE 92
== END 2023-12-18 20:45 | disposition home or self-care (01) ==
LOC: LB.ED 18:28
DX: R42 Dizziness and giddiness (principal); H53.2 Diplopia; I10 Essential (primary) hypertension; E03.9 Hypothyroidism, unspecified; Z88.1 Allergy status to other antibiotic agents; Z79.899 Other long term (current) drug therapy; Z86.16 Personal history of COVID-19; Z90.49 Acquired absence of other specified parts of digestive tract; Z90.710 Acquired absence of both cervix and uterus; Z87.891 Personal history of nicotine dependence
CPT/HCPCS: 36415; 80048; 85025; 86140; 99284; A9270-GY; Q0162

== ENCOUNTER 2024-05-30 17:39 | Emergency (ER) | payer MEDICARE ==
[2024-05-30] MEDS ORDERED: Hydrocortisone Acetate 1% Crm 30 GM Tube ONE (18:15)
[2024-05-30] MEDS: Ketorolac 15 MG/ML SDV IM ONE (18:29)
[2024-05-30 18:36] VITALS: BP 147/66; PULSE 93
== END 2024-05-30 18:33 | disposition home or self-care (01) ==
LOC: LB.ED 17:39
DX: S90.862A Insect bite (nonvenomous), left foot, initial encounter (principal); I10 Essential (primary) hypertension; E03.9 Hypothyroidism, unspecified; Z86.16 Personal history of COVID-19; E78.00 Pure hypercholesterolemia, unspecified; Z88.1 Allergy status to other antibiotic agents; Z79.899 Other long term (current) drug therapy; W57.XXXA Bitten or stung by nonvenomous insect and other nonvenomous arthropods, initial encounter; Y93.89 Activity, other specified
CPT/HCPCS: 96372; 99283; J1885; A9270-GY

== ENCOUNTER 2024-11-25 11:49 | Day surgery (SDC) | payer MEDICARE ==
[2024-11-25] MEDS ORDERED: Propofol 200 MG/20 ML SDV ONE (13:00)
[2024-11-25 13:25] VITALS: BP 126/73; PULSE 76
== END 2024-11-25 14:10 | disposition home or self-care (01) ==
LOC: LB.SDS 11:49
PROVIDERS: ATTEND Surgery
DX: Z12.11 Encounter for screening for malignant neoplasm of colon (principal); K29.50 Unspecified chronic gastritis without bleeding; K21.9 Gastro-esophageal reflux disease without esophagitis; K44.9 Diaphragmatic hernia without obstruction or gangrene; K52.9 Noninfective gastroenteritis and colitis, unspecified; I10 Essential (primary) hypertension; E78.00 Pure hypercholesterolemia, unspecified; Z80.0 Family history of malignant neoplasm of digestive organs; Z98.0 Intestinal bypass and anastomosis status; Z88.8 Allergy status to other drugs, medicaments and biological substances; Z79.82 Long term (current) use of aspirin; Z86.16 Personal history of COVID-19; Z79.899 Other long term (current) drug therapy
CPT/HCPCS: 88305; 88341; J2704; J7030

== ENCOUNTER 2024-12-07 17:33 | Emergency (ER) | payer MEDICARE ==
[2024-12-07 18:04] VITALS: PULSE 103
[2024-12-07 18:21] LABS: BASOPHILS ABSOLUTE AUTO 0.03 K/uL (0.02-0.10); BASOPHILS PERCENT AUTO 0.5 % (0.0-0.5); EOSINOPHILS ABSOLUTE AUTO 0.40 K/uL (0.04-0.40); EOSINOPHILS PERCENT AUTO 6.1 % (1.0-5.0); LYMPHOCYTES ABSOLUTE AUTO 1.45 K/uL (1.50-4.00); LYMPHOCYTES PERCENT AUTO 22.2 % (20.0-40.0); MEAN PLATELET VOLUME 8.8 fL (6.0-10.0); MONOCYTES ABSOLUTE AUTO 0.54 K/uL (0.20-0.80); MONOCYTES PERCENT AUTO 8.3 % (3.0-10.0); NEUTROPHILS ABSOLUTE AUTO 4.10 K/uL (2.00-7.50); NEUTROPHILS PERCENT AUTO 62.9 % (45.0-70.0); PLATELET COUNT,PLT 352 K/uL (150-500); RED BLOOD CELL COUNT 4.36 M/uL (3.80-5.80); RED CELL DISTRIBUTION WIDTH 13.9 % (11.0-16.0); WHITE BLOOD CELL COUNT,WBC 6.5 K/uL (4.0-11.0)
[2024-12-07] MEDS ORDERED: Sodium Chloride 0.9% 10 ML Syringe FLUSH PRN (18:24)
[2024-12-07 18:25] LABS: APPEARANCE,URINE CLEAR (CLEAR); GLUCOSE,URINE NEGATIVE (NEGATIVE); OCCULT BLOOD,URINE NEGATIVE (NEGATIVE)
[2024-12-07 18:30] LABS: SQUAMOUS EPITHELIAL CELLS,UR OCCASIONAL /HPF
[2024-12-07 18:37] LABS: A/G RATIO 0.8 (0.8-2.0); ALANINE AMINOTRANSFERASE,ALT 35.0 U/L (12-78); ASPARTATE AMNIOTRANSFERASE,AST 18.0 U/L (15-37); BILIRUBIN TOTAL 0.2 mg/dL (0.0-1.0); BLOOD UREA NITROGEN,BUN 21.0 mg/dL (8-26); CARBON DIOXIDE,CO2 30.2 mmol/L (21.0-32.0); CHLORIDE,CL 104.0 mmol/L (98-107); CREATININE 0.59 mg/dL (0.55-1.02); EST CRCL DRUG DOSING (CG) 89.98 mL/min; ESTIMATED GFR 99.0 mL/min (>60); GLUCOSE RANDOM 97.0 mg/dL (74-100); POTASSIUM,K 3.4 mmol/L (3.5-5.1); PROTEIN TOTAL,TP 6.7 g/dL (6.4-8.2); SODIUM,NA 139.0 mmol/L (136-145)
[2024-12-07] MEDS: Ketorolac 15 MG/ML SDV IVPUSH ONE (18:43)
[2024-12-07] MEDS: Ondansetron 4 MG/2 ML SDV IVPUSH ONE (18:44)
[2024-12-07 22:24] VITALS: BP 155/80
== END 2024-12-07 21:20 | disposition home or self-care (01) ==
LOC: LB.ED 17:33
DX: R10.9 Unspecified abdominal pain (principal); I10 Essential (primary) hypertension; E78.00 Pure hypercholesterolemia, unspecified; K21.9 Gastro-esophageal reflux disease without esophagitis; Z86.16 Personal history of COVID-19; Z88.8 Allergy status to other drugs, medicaments and biological substances; Z79.899 Other long term (current) drug therapy; Z90.49 Acquired absence of other specified parts of digestive tract; Z90.710 Acquired absence of both cervix and uterus
CPT/HCPCS: 36415; 74176; 80053; 81001; 83690; 85025; 96374; 96375; 99284; J1885; J2405

== ENCOUNTER 2024-12-30 21:15 | Emergency (ER) | payer MEDICARE ==
[2024-12-30] MEDS ORDERED: Sodium Chloride 0.9% 10 ML Syringe FLUSH PRN (21:46)
[2024-12-30 21:53] LABS: BASOPHILS ABSOLUTE AUTO 0.02 K/uL (0.02-0.10); BASOPHILS PERCENT AUTO 0.3 % (0.0-0.5); EOSINOPHILS ABSOLUTE AUTO 0.60 K/uL (0.04-0.40); EOSINOPHILS PERCENT AUTO 7.6 % (1.0-5.0); LYMPHOCYTES ABSOLUTE AUTO 1.70 K/uL (1.50-4.00); LYMPHOCYTES PERCENT AUTO 21.4 % (20.0-40.0); MEAN PLATELET VOLUME 8.9 fL (6.0-10.0); MONOCYTES ABSOLUTE AUTO 0.71 K/uL (0.20-0.80); MONOCYTES PERCENT AUTO 8.9 % (3.0-10.0); NEUTROPHILS ABSOLUTE AUTO 4.91 K/uL (2.00-7.50); NEUTROPHILS PERCENT AUTO 61.8 % (45.0-70.0); PLATELET COUNT,PLT 405 K/uL (150-500); RED BLOOD CELL COUNT 4.64 M/uL (3.80-5.80); RED CELL DISTRIBUTION WIDTH 13.7 % (11.0-16.0); WHITE BLOOD CELL COUNT,WBC 7.9 K/uL (4.0-11.0)
[2024-12-30] MEDS: Ondansetron 4 MG/2 ML SDV IVPUSH ONE (21:54)
[2024-12-30 22:04] LABS: A/G RATIO 0.7 (0.8-2.0); ALANINE AMINOTRANSFERASE,ALT 24.0 U/L (12-78); ASPARTATE AMNIOTRANSFERASE,AST 13.0 U/L (15-37); BILIRUBIN TOTAL 0.2 mg/dL (0.0-1.0); BLOOD UREA NITROGEN,BUN 18.0 mg/dL (8-26); CARBON DIOXIDE,CO2 28.9 mmol/L (21.0-32.0); CHLORIDE,CL 106.0 mmol/L (98-107); CREATININE 0.69 mg/dL (0.55-1.02); EST CRCL DRUG DOSING (CG) 78.37 mL/min; ESTIMATED GFR 95.0 mL/min (>60); GLUCOSE RANDOM 94.0 mg/dL (74-100); POTASSIUM,K 3.8 mmol/L (3.5-5.1); PROTEIN TOTAL,TP 7.2 g/dL (6.4-8.2); SODIUM,NA 142.0 mmol/L (136-145)
[2024-12-30 22:35] VITALS: BP 118/65; PULSE 96
== END 2024-12-30 22:57 | disposition home or self-care (01) ==
LOC: LB.ED 21:15
DX: K92.1 Melena (principal); K59.00 Constipation, unspecified; E78.00 Pure hypercholesterolemia, unspecified; I10 Essential (primary) hypertension; Z88.1 Allergy status to other antibiotic agents; Z79.899 Other long term (current) drug therapy; Z90.710 Acquired absence of both cervix and uterus
CPT/HCPCS: 36415; 80053; 83735; 85025; 96361; 96374; 99284; A9270; J2405; J7030